=== PATIENT | female | born 1950 | race Caucasian/White ===

== ENCOUNTER 2023-10-07 11:12 | Emergency (ER) | payer MEDICARE, SELFPAY ==
[2023-10-07] VITALS (7 sets, daily range): BP systolic 124–140; BP diastolic 70–92; PULSE 74–105; RESP 14–20; TEMP 36.4–36.9; O2SAT 92–99
--- NOTE | ~2023-10-07 | CT_ITS ---
EXAMINATION: CT soft tissue neck chest w DATE: 10/07/2023 13:37 INDICATION: Cough. Sore throat. TECHNIQUE: Computed tomography (CT) of the neck and chest was performed with 75 mL Omnipaque-350 intr avenous contrast. Automated exposure control and iterative reconstruction technique were employed. Th e dose-length product was 531.95 mGy-cm. COMPARISON: None FINDINGS: CT NECK: There are likely changes of ocular lens replacement surgeries. There is mucosal thickening i nvolving the pharynx and larynx, likely changes of radiation therapy. There is chronic total occlusio n versus resection of right internal jugular vein. There is fat stranding in the neck, likely changes of radiation therapy. There is plaque in the proximal internal carotid arteries with 0% stenosis rel ative to normal distal artery lumen diameters. There are no pathologically enlarged lymph nodes. Ther e is moderate cervical spondylosis. CT CHEST: There is scarring at the lung apices, likely chronic radiation pneumonitis. There is chroni c radiation pneumonitis in anterolateral right lung. There is a 6.3 x 3.8 cm mass at left hilum with invasion of left pulmonary artery. A calcified left lung nodule and calcified left hilar and mediasti nal lymph nodes are consistent with old granulomatous disease. There is mild atelectasis in the lungs . There are mild groundglass opacities in left upper lobe and left lower lobe, likely focal pulmonary edema. No pleural effusion. Calcifications in the spleen are consistent with old granulomatous disea se. There is thoracic kyphosis and severe spondylosis. IMPRESSION: 1. 6.3 x 3.8 cm mass at left hilum, consistent with primary bronchogenic carcinoma versus metastatic disease. Reviewed, dictated and finalized at location A. ER TRAINER IMPRESSION: 1. 6.3 x 3.8 cm mass at left hilum, consistent with primary bronchogenic carcin mara versus metastatic disease.
--- NOTE | ~2023-10-07 | XR_ITS ---
EXAMINATION: XR chest 2V DATE: 10/07/2023 12:02 INDICATION: Cough. Sore throat. TECHNIQUE: Frontal and lateral views of the chest were obtained. COMPARISON: Chest 2 views 09/30/2004 FINDINGS: There is mild scarring at the lung apices. No pleural effusion or pneumothorax. The heart s ize is normal. Surgical clips overlie right axilla. IMPRESSION: 1. Mild scarring at the lung apices. Reviewed, dictated and finalized at location A. ER OPERATOR
--- NOTE | 2023-10-07 11:30 | ECG_ITS ---
Measurements Intervals [place] Rate: 102 P: 71 LA: 161 QRS: 57 QRSD: 78 T: 56 QT: 357 QTc: 465 Interpretive Statements SINUS TACHYCARDIA POSSIBLE LEFT ATRIAL ENLARGEMENT CANNOT RULE OUT SEPTAL INFARCT, AGE INDETERMINATE BASELINE ARTIFACT- I, II, III, AVR, AVL, AVF, V4 ABNORMAL ECG NO PREVIOUS ECG AVAILABLE FOR COMPARISON Electronically Signed On 10-07-2023 12:13:56 MEAT MOLDER by Paras Deras D.O.
[2023-10-07 12:01] LABS: Basophils Percent Auto 0.3 % (0.2-1.2); Eosinophils Absolute Auto 0.1 K/mm3 (0-0.3); Eosinophils Percent Auto 0.7 % (0-4.4); Hematocrit 37.7 % (37.0-47.0); Hemoglobin 11.9 g/dL (12.0-15.0); Immature Granulocyte Absolute 0.04 K/mm3 (0.00-0.031); Immature Granulocyte Percent A 0.3 % (0-0.5); Lymphocytes Absolute Auto 0.62 K/mm3 (0.9-3.2); Lymphocytes Percent Auto 5.4 % (18.3-44.2); Mean Corpuscular HGB Conc 31.6 g/dl (32-36); Mean Corpuscular Volume 91.7 fl (80-100); Mean Platelet Volume 9.7 fl (7.4-10.4); Monocytes Absolute Auto 0.9 K/mm3 (0.1-0.6); Monocytes Percent Auto 8.1 % (2.6-8.5); Neutrophils Absolute Auto 9.8 K/mm3 (1.3-6.7); Neutrophils Percent Auto 85.2 % (45.5-73.1); Platelet Count Result 277 k/mm3 (150-375); Red Blood Count 4.11 M/mm3 (4.2-5.4); Red Cell Distribution Width 12.9 % (11.5-14.5); White Blood Count 11.5 K/mm3 (4.5-10.0)
[2023-10-07 12:03] LABS: Alanine Aminotransferase 18 U/L (6-35); Albumin Level 4.5 g/dL (3.5-5.1); Alkaline Phosphatase 73 U/L (38-126); Anion Gap 6 mmol/L (8-16); Aspartate Amino Transferase 27 U/L (14-36); Bilirubin,Total 0.7 mg/dL (0.2-1.3); Blood Urea Nitrogen 15 mg/dL (7-17); Calcium 9.7 mg/dL (8.4-10.2); Carbon Dioxide 35 mmol/L (22-30); Chloride 90 mmol/L (98-107); Estimated Glomerular Filt Rate 49; Glucose 121 mg/dL (65-110); Potassium 3.3 mmol/L (3.4-5.0); Sodium 131 mmol/L (137-145)
[2023-10-07 12:37] LABS: Influenza A QL RT-PCR Negative (Negative); Influenza B QL RT-PCR Negative (Negative); RSV RNA, RT-PCR Negative (Negative); SARS-CoV-2 RNA PCR Negative (Negative)
--- NOTE | 2023-10-07 13:14 | ED.GENADULT ---
HPI - General Adult General Chief complaint: Upper Respiratory Infection Stated complaint: URI, LOW Sats Time Seen by Provider: 10/07/23 11:34 History of Present Illness HPI narrative: 73-year-old female presenting to the emergency department for evaluation of persistent sore throat and cough. Patient states she began developing sore throat symptoms on Tuesday, was started on antibiotics on Tuesday by her primary care physician but states she is still having persistent cough. Patient states she does have nasal drainage. Patient does report a prior history of tongue cancer and breast cancer. Related Data Allergies Allergy/AdvReac Type Severity Reaction Status Date / Time fentanyl Allergy Severe COMA Verified 02/14/17 08:14 Review of Systems Review of Systems: All systems reviewed & are unremarkable except as noted in HPI and below PMFSH Family History Family History (Updated 04/04/14 @ 07:13 by DOCTOR UNKNOWN) Mother Family history of malignant neoplasm Father Malignant neoplasm of prostate Social History Social History Smoking status: Never smoker Second hand tobacco smoke exposure: No Alcohol intake: current Exam Narrative: APPEARANCE: Well appearing, no pain, no distress, well-nourished. HEAD: normocephalic, atraumatic. EYES: PERRLA/EOMI, conjunctivae clear. NOSE: Normal no drainage THROAT: Pharynx clear, no exudate. NECK: Supple. No adenopathy, no masses. RESPIRATORY: Airway patent, respirations nonlabored. Clear to auscultation bilaterally, no rales, rhonchi, wheezing. CARDIOVASCULAR: Regular rate and rhythm without murmurs rubs or gallops. ABDOMINAL: Soft, nontender, nondistended, normal bowel sounds MUSCULOSKELETAL: Moves all extremities. Strength/ROM intact, No edema, No calf tenderness. NEURO: Alert. Cranial nerves II through XII intact. Grossly intact SKIN: Warm, dry. Normal Color Course Course Emergency Course: Case is discussed with the patient's primary care physician and they will help to expedite further outpatient evaluation of the suspected bronchogenic carcinoma Vital Signs Vital signs: Vital Signs Temperature 98.5 F 10/07/23 11:33 Pulse Rate 105 H 10/07/23 11:33 Respiratory Rate 16 10/07/23 11:33 Blood Pressure 140/92 H 10/07/23 11:33 Pulse Oximetry 94 10/07/23 11:33 Oxygen Delivery Room Air 10/07/23 11:33 Temperature 97.6 F 10/07/23 15:00 Pulse Rate 78 10/07/23 15:00 Respiratory Rate 18 10/07/23 15:00 Blood Pressure 130/80 10/07/23 15:00 Pulse Oximetry 97 10/07/23 15:00 Oxygen Delivery Room Air 10/07/23 11:37 Medical Decision Making MDM Narrative Medical decision making narrative: 73 old female presenting to the emergency department for evaluation of persistent sore throat and cough. CT soft tissue neck and CT chest were ordered. Patient is afebrile but does have a leukocytosis of 11.5, no significant abnormalities on the patient's CMP. Patient was negative for influenza RSV and for COVID. Chest CT was concerning for bronchogenic carcinoma versus metastatic disease. Patient does have a 30-year-old male history of breast cancer at 12-year-old male with history of throat cancer. Patient is well-appearing with stable pulse ox. Patient was comfortable the plan for discharge and close follow-up. I discussed the case with the PA on-call for the patient's primary care physician and they will help to expedite additional outpatient studies to further evaluate the suspected bronchogenic carcinoma. Differential Diagnosis Differential Diagnosis: Posterior pharyngeal abscess, peritonsillar abscess, pneumonia, pulmonary edema Vital Signs Vital Signs: Vital Signs Temperature 98.5 F 10/07/23 11:33 Pulse Rate 105 H 10/07/23 11:33 Respiratory Rate 16 10/07/23 11:33 Blood Pressure 140/92 H 10/07/23 11:33 Pulse Oximetry 94 10/07/23 11:33 Oxygen Delivery Room Air 10/07/23 11:33 Temperature 97.6 F 10/06
== END 2023-10-07 15:22 | disposition home or self-care (01) ==
PROVIDERS: Emergency Provider Emergency Medicine; PCP Family Medicine
DX: C34.90 Malignant neoplasm of unspecified part of unspecified bronchus or lung (principal); J06.9 Acute upper respiratory infection, unspecified; Z20.822 Contact with and (suspected) exposure to COVID-19
CPT/HCPCS: 36415; 70491; 71046; 71260; 80053; 85025; 87637; 93005; 99284; Q9967

== ENCOUNTER 2023-10-25 15:35 | Outpatient (CLI) | payer MEDICARE, SELFPAY ==
--- NOTE | 2023-10-25 | ECHO_ITS ---
Patient Info Name: Ghislaine Haji Age: 73 years : 1950 Gender: Female Ht: 60 in Wt: 87 lbs BSA: 1.28 m2 HR: 98 bpm BP: 130 / 80 mmHg Heart Rhythm: Sinus Rhythm Technical Quality: Good Exam Date: 10/25/2023 3:49 PM Exam Location: Echo Lab Patient Status: Outpatient Admit Date: 10/25/2023 Staff Ordering Physician: SCOTTY, MICHELLE Central Supply Assistant: Attending Provider: SCOTTYMICHELLE Exam Type: CA echo doppler color flow Study Info Indications - pre op Complete two-dimensional, color flow and Doppler transthoracic echocardiogram is performed. Summary 1. Complete two-dimensional, color flow and Doppler transthoracic echocardiogram is performed. 2. Left ventricular chamber dimension is normal. 3. Left ventricular systolic function is normal, estimated at >70%. 4. The left ventricular diastolic function is grade I diastolic dysfunction. 5. Right ventricular systolic function is normal. 6. No significant valvular disease. 7. There is small anterior pericardial effusion. Left Ventricle Left ventricular chamber dimension is normal. Left ventricular systolic function is normal, estimated at >70%. There is no increased left ventricular wall thickness. The left ventricular diastolic function is grade I diastolic dysfunction. Right Ventricle Right ventricular chamber dimension is normal. Right ventricular systolic function is normal. Left Atria Left atrial chamber dimension is normal. Right Atria Right atrial chamber dimension is normal. Atrial Septum Intact interatrial septum visualized by color flow imaging. Aortic Valve The aortic valve is trileaflet. There is no aortic valve stenosis. There is no aortic valve regurgitation. There is mild aortic valve calcification. Pulmonic Valve The pulmonic valve is not well visualized. Mitral Valve There is trace mitral valve regurgitation. The mitral valve annulus is severely calcified. Tricuspid Valve There is trace tricuspid valve regurgitation. Pericardium/Pleural There is small anterior pericardial effusion. Inferior Vena Cava Normal inferior vena cava with >50% collapse upon inspiration consistent with normal right atrial pressure, 3 mmHg. Aorta The aortic root size at the sinus of Valsalva is normal. Left Ventricular Outflow Tract Name Value Normal LVOT 2D LVOT Diameter 2.1 cm LVOT Doppler LVOT Peak Gradient 7 mmHg LVOT Mean Gradient 3 mmHg LVOT VTI 25 cm LVOT VTI/AV VTI Ratio 0.8 LVOT Stroke Volume 82 ml LVOT CO 7.9 l/min LVOT CI 6.2 l/min/m2 Pulmonic Valve Name Value Normal PV Doppler PV Peak Gradient 4 mmHg Mitral Valve Name Value
== END 2023-10-25 15:36 | disposition home or self-care (01) ==
LOC: ANHCARD 15:39
PROVIDERS: PCP Family Medicine
DX: I31.39 Other pericardial effusion (noninflammatory) (principal); R93.1 Abnormal findings on diagnostic imaging of heart and coronary circulation; R91.8 Other nonspecific abnormal finding of lung field
CPT/HCPCS: 93306

== ENCOUNTER 2023-12-25 10:18 | Emergency (ER) | payer MEDICARE, SELFPAY ==
[2023-12-25 10:20] VITALS: BP 124/67; PULSE 96; RESP 16; TEMP 36.7; O2SAT 100
--- NOTE | 2023-12-25 10:44 | ED.GENADULT ---
HPI - General Adult General Chief complaint: Unspecified Stated complaint: I have a feeding tube thats trying to come out Time Seen by Provider: 12/25/23 10:30 History of Present Illness HPI narrative: Patient is a 73-year-old female who presents ER with feeding tube issues. It was placed 1 month ago. She has been having some drainage around the area recently and would like to have it evaluated. She is concerned it is going to come out. No fevers or chills or sweats. No new issues with giving herself tube feeds. Related Data Allergies Allergy/AdvReac Type Severity Reaction Status Date / Time fentanyl Allergy Severe COMA Verified 12/25/23 10:23 Review of Systems Constitutional: Constitutional: Reports no additional constitutional complaints Cardiovascular: Cardiovascular: Reports no additional cardiovascular complaints Respiratory: Respiratory: Reports no additional respiratory complaints Gastrointestinal: Gastrointestinal: Reports no additional gastrointestinal complaints PMFSH Past Medical History Medical History (Updated 12/25/23 @ 10:48 by Brent Callahan MD) Gastrostomy tube in place Lung cancer Family History Family History (Updated 04/04/14 @ 07:13 by DOCTOR UNKNOWN) Mother Family history of malignant neoplasm Father Malignant neoplasm of prostate Social History Social History Smoking status: Never smoker Second hand tobacco smoke exposure: No Alcohol intake: current Exam Narrative: GENERAL: Well-appearing, well-nourished, and in no acute distress. HEAD: Normocephalic, atraumatic. EYES: PERRLA and EOMI. ENT: Nares clear, no rhinorrhea or epistaxis. Mucous membranes moist. NECK: Supple. CHEST: Clear to auscultation. No respiratory distress. HEART: Regular rate and rhythm. No murmur heard. Normal peripheral pulses. ABDOMEN: Soft, nontender, nondistended, normal active bowel sounds. EXTREMITIES: Normal range of motion. No edema. SKIN: Warm, dry, no rash. NEURO: No focal deficits. Alert and oriented x3. PSYCH: Normal mood and affect. Course Course Emergency Course: patient had 5 mL of fluid in the balloon like she is supposed to. I did better secure the disc to the abdominal lung. I have cleaned up gastric contents that were coming through the fistula. Educated patient on how to better secure the disc to the abdominal wall. Vital Signs Vital signs: Vital Signs Temperature 98.1 F 12/25/23 10:20 Pulse Rate 96 12/25/23 10:20 Respiratory Rate 16 12/25/23 10:20 Blood Pressure 124/67 12/25/23 10:20 Pulse Oximetry 100 12/25/23 10:20 Oxygen Delivery Room Air 12/25/23 10:20 Temperature 98.1 F 12/25/23 10:20 Pulse Rate 96 12/25/23 10:20 Respiratory Rate 16 12/25/23 10:20 Blood Pressure 124/67 12/25/23 10:20 Pulse Oximetry 100 12/25/23 10:20 Oxygen Delivery Room Air 12/25/23 10:20 Medical Decision Making Vital Signs Vital Signs: Vital Signs Temperature 98.1 F 12/25/23 10:20 Pulse Rate 96 12/25/23 10:20 Respiratory Rate 16 12/25/23 10:20 Blood Pressure 124/67 12/25/23 10:20 Pulse Oximetry 100 12/25/23 10:20 Oxygen Delivery Room Air 12/25/23 10:20 Temperature 98.1 F 12/25/23 10:20 Pulse Rate 96 12/25/23 10:20 Respiratory Rate 16 12/25/23 10:20 Blood Pressure 124/67 12/25/23 10:20 Pulse Oximetry 100 12/25/23 10:20 Oxygen Delivery Room Air 12/25/23 10:20 Discharge Plan Discharge Clinical Impression: Complication of feeding tube Patient Disposition: Home, Self-Care Condition: Stable Instructions: How to Use and Care for Your PEG Tube (DC) Additional Instructions: Return the ER if you cannot perform tube feeds, you have severe abdominal pain, or you have additional concerns. Follow-up/Referrals: Howard,Moses Delgado MD [Primary Care Provider] - 1 Week
== END 2023-12-25 11:08 | disposition home or self-care (01) ==
PROVIDERS: Emergency Provider Emergency Medicine
DX: T85.528A Displacement of other gastrointestinal prosthetic devices, implants and grafts, initial encounter (principal); Y73.1 Therapeutic (nonsurgical) and rehabilitative gastroenterology and urology devices associated with adverse incidents
CPT/HCPCS: 99281

== ENCOUNTER 2025-05-02 11:21 | Emergency (ER) | payer MEDICARE, SELFPAY ==
--- OUTSIDE RECORDS SUMMARY | 2000-08-08 06:11 | XMS_ITS | Continuity of Care Document ---
Author Organization [facility] Address [address] [place] [address] Phone Care Team Providers Care Juvenile Officer Name Role Phone Interface, HMaint Import Unavailable Unavail able Medications Medication Instructions Dosage Effective Dates (start - stop) Status Comments No Drug Therapy Prescribed Advance Directives Directive Yes / No Effective Date File Name No Information Encounters Encounter Description Practice Location Reason(s) For Visit Diagnoses Date Provider Providers Copied on Encounter [facility], [address] [place] [address], [id number], [place] tel:[phone] [facility] No Information Interface HMaint Import. . Family History Family Member Type Diagnosis Age At Onset No Information Payers Payer name Insurance type Covered green party ID Authoriza tion(s) No Information Social History Type Description Quantity Date Captured Comments Sex Female Smoking Status No Information Chief Complaint And Reason For Visit No Information History Of Present Illness Encounter Date Complaint History Of Prese nt Illness No Information Medications Administered Medication Instructions Dosage Effective Dates (start - stop) Status Comments No Drug Therapy Prescribed Instructions Date Instruction Additional Infor mation No Information Assessments Type Assessment Date No Information
[2025-05-02] VITALS (7 sets, daily range): BP systolic 130–141; BP diastolic 69–93; PULSE 90–116; RESP 14–20; TEMP 36.8; O2SAT 97–100
--- NOTE | ~2025-05-02 | CT_ITS ---
EXAMINATION: CT soft tissue neck w con COMPARISON: None HISTORY: Hemoptysis, hx of tongue cancer TECHNIQUE: Axial images were obtained with IV contrast. Sagittal, coronal reconstruction images were obtained from the axial views. Omnipaque 370, [address] scan performed using dose optimization techniques including the following automated exposure control; adjustment of mA and/or kV; use of iterative reconstruction technique. Automatic exposure control was used to reduce radiation dose. Permanent radiation dose record is archived to PACS. FINDINGS: The visualized brain parenchyma and optic globes are unremarkable There is no thickening of the prevertebral space. There is asymmetry of the base of the tongue with irregularity of the base of the tongue and nodularity which extends into the right aryepiglottic fold with thickening of the aryepiglottic folds or dislocation. There is abnormal edema noted involving the vocal cords bilaterally with severe narrowing of the airspace at this level with hyperemia also noted of the vocal cords with irregularity of the parietal recess. No thyroid nodules. No anterior superior mediastinal lymphadenopathy. No thickening of the visualized esophagus There is stranding within the parapharyngeal spaces. No asymmetry of the tonsillar tissue however the tonsillar tissue appears edematous especially on the right side with infiltration of the right parapharyngeal space. The left parotid gland is not clearly identified and appears atrophic. The right parotid gland appears unremarkable. The left submandibular gland appears atrophic. The right submandibular gland is not clearly identified There is abnormal density in the right jugulodigastric space with no lymphadenopathy. Small lymph nodes noted in the left jugulodigastric space and the posterior cervical triangles bilaterally. There is no supraclavicular lymphadenopathy identified. The lung apices demonstrate chronic changes with apical scarring bilaterally. There is a left-sided Mediport. No sclerotic or lytic lesions. There is however significant dental disease noted involving the visualized mandible with dental abscesses noted, distinction from treatment related changes limited. No significant sinusitis. The soft tissues appear unremarkable IMPRESSION: Irregularity of the airway detailed above with abnormal enhancement. There is narrowing of the airway with infiltration of the right parapharyngeal space. These findings may reflect sequelae of previous treatment, superimposed infection difficult to exclude however underlying neoplasm should be considered. PET CT is recommended to further assess. Direct visualization is suggested with a tissue sampling . Reviewed, dictated and finalized at location P. IMPRESSION: Irregularity of the airway detailed above with abnormal enhancement . There is narrowing of the airway with infiltration of the right parapharyngea l space. These findings may reflect sequelae of previous treatment, superimpose d infection difficult to exclude however underlying neoplasm should be consider ed. PET CT is recommended to further assess. Direct visualization is suggested with a tissue sampling .
--- NOTE | ~2025-05-02 | XR_ITS ---
Examination: XR chest 1V portable Clinical History: Hemoptysis Comparison: X-rays 10/07/2023 Technique: Portable AP Findings: Left chest Mediport. Heart size normal. Emphysema. Left midlung focal interstitial markings or airspace disease. No acute bony abnormality. IMPRESSION: 1. Focal interstitial markings or airspace disease left midlung. Reviewed, dictated and finalized at location R.
--- NOTE | ~2025-05-02 | CT_ITS ---
CTA CHEST CLINICAL HISTORY: Hemoptysis, hx of lung/tongue ca . COMPARISON: Chest x-ray today TECHNIQUE: Helical CTA performed from thoracic inlet to upper abdomen IV contrast information not listed in PACS Coronal, sagittal reformats. Multiplanar MIPS CT images acquired with automatic exposure control for dose reduction DLP: 138 mGy-cm FINDINGS: Pulmonary arteries: No PE. Thoracic Aorta: No dissection or aneurysm. Heart/pericardium: Heart size mildly enlarged. Small pericardial fluid. RV/LV ratio: Normal. Lungs/Pleura: Hyperinflation. Biapical scarring.Scarring right upper and middle lobes peripherally. Tracheobronchial tree: Patent. Nodes: No enlarged nodes. Left perihilar soft tissue with surrounding scarring extending into lung. Left hilar calcification Bones: No acute bony abnormality. Soft tissues: Unremarkable. Visualized upper abdomen: Small hiatal hernia. IMPRESSION: 1. No PE. 2. Left hilar changes likely posttreatment effect but viable malignancy cannot be excluded. Recommend continued surveillance. 3. Lung changes treatment fibrosis. 4. Small pericardial fluid. Reviewed, dictated and finalized at location R.
--- NOTE | 2025-05-02 12:18 | ECG_ITS ---
Test Date: 2025-05-02 12:30:17 Measurements Intervals [place] Rate: 87 P: 71 LA: 177 QRS: 64 QRSD: 81 T: 58 QT: 363 QTc: 438 Interpretive Statements SINUS RHYTHM WITH OCCASIONAL SUPRAVENTRICULAR PREMATURE COMPLEXES No previous ECG available for comparison Electronically Signed On 05-02-2025 15:25:05 CDT by Sedrick Balderrama M.D.
--- NOTE | 2025-05-02 12:33 | ED.GENADULT ---
HPI - General Adult General Chief complaint: Unspecified Stated complaint: COUGHING UP BLOOD- LUNG CANCER Time Seen by Provider: 05/02/25 11:58 History of Present Illness HPI narrative: This is a 75-year-old female with history of tongue and lung cancer, both in remission presenting for new hemoptysis. Patient noticed that she has been coughing up blood started this morning. There is no other associated symptoms such as chest pain shortness of breath or difficulty breathing. Patient has noticed that she is starting to lose some of her teeth the radiation but she does not believe that the bleeding is coming from her mouth. No swelling of her legs. No fevers. The patient does have a chronic cough she attributes to her lung cancer and treatment. Related Data Home Medications ?Medication ?Instructions ?Recorded ?Confirmed ?Last Taken ?Type alprazolam 0.5 mg tablet 0.5 mg PO DAILY 12/18/24 Unknown History amlodipine 5 mg tablet 5 mg PO DAILY 12/18/24 Unknown History citalopram 20 mg tablet 20 mg PO DAILY 12/18/24 Unknown History levothyroxine 50 mcg capsule 50 mcg PO DAILY 12/18/24 Unknown History Allergies Allergy/AdvReac Type Severity Reaction Status Date / Time fentanyl Allergy Severe COMA Verified 05/02/25 11:21 [facility] Past Medical History Medical History (Updated 05/02/25 @ 15:22 by Bahman Hernandez MD) Gastrostomy tube in place Lung cancer 2023- chemo, radiation, immune therapy Surgical History Surgical History (Updated 12/18/24 @ 15:02 by MARCELLA Hall-C) H/O section Hx of tonsillectomy History of lumpectomy of right breast H/O breast augmentation Family History Family History Mother Family history of malignant neoplasm Father Malignant neoplasm of prostate Social History Social History Smoking status: Never smoker Second hand tobacco smoke exposure: No Alcohol intake: current Exam Narrative: APPEARANCE: No apparent distress. Head: atraumatic. EYES: EOMI, NOSE: Atraumatic NECK: Trachea midline RESPIRATORY: No increased rate of breathing, CTAB, speaking in full sentences CARDIOVASCULAR: RRR, no peripheral edema ABDOMINAL: Non-distended soft nontender MUSCULOSKELETAl: No obvious deformities NEURO: Alert. Moving 4/4 extremities SKIN:: Warm, dry. Normal color PSYCHIATRIC: Normal affect Course Vital Signs Vital signs: Vital Signs Temperature 98.2 F 05/02/25 11:29 Pulse Rate 95 05/02/25 11:29 Respiratory Rate 16 05/02/25 11:29 Blood Pressure 136/69 05/02/25 11:29 Pulse Oximetry 97 05/02/25 11:29 Oxygen Delivery Room Air 05/02/25 11:29 Temperature 98.2 F 05/02/25 11:29 Pulse Rate 97 05/02/25 12:31 Respiratory Rate 14 05/02/25 12:00 Blood Pressure 141/93 H 05/02/25 12:00 Pulse Oximetry 100 05/02/25 12:00 Oxygen Delivery Room Air 05/02/25 11:55 Medical Decision Making MDM Narrative Medical decision making narrative: -Course: 75-year-old female with history of lung and throat cancer presenting for hemoptysis. On exam she is resting comfortably and vital signs are stable. CT PE and CT soft tissue neck ordered to evaluate for neoplasm and PE. CT of the chest was negative for PE. It showed residual scarring from the previous lung cancer site there unclear if there is any new malignancy. Similarly with the CT of her throat there is scarring from previous neoplasm and they are unclear if there is new neoplasm or not. They recommended further evaluation by Oncology. I reach out to the patient's oncologist team at [facility]. I spoke with Dr. Verdugo and reviewed the case. She will reach out to her primary oncologist team and they will arrange appropriate follow-up for further testing. Results were discussed with the patient she is comfortable going home. She is given return precautions for severe bleeding, chest pain or shortness of breath. Patient is agreeable with plan. -DDX includes but is not limited to: PE, chronic cough with hemoptysis, recurrence Of neoplasm either in the chest or the throat Independent interpretation of studies: White count 8.7. Hemoglobin 11.4 which is consistent with her previous hemoglobin 11.9. Metabolic panel showed chronic CO2 retainer pattern. Otherwise laboratory studies normal. Viral swabs negative. Vital Signs Vital Signs: Vital Signs Temperature 98.2 F 05/02/25 11:29 Pulse Rate 95 05/02/25 11:29 Respiratory Rate 16 05/02/25 11:29 Blood Pressure 136/69 05/02/25 11:29 Pulse Oximetry 97 05/02/25 11:29 Oxygen Delivery Room Air 05/02/25 11:29 Temperature 98.2 F 05/02/25 11:29 Pulse Rate 97 05/02/25 12:31 Respiratory Rate 14 05/02/25 12:00 Blood Pressure 141/93 H 05/02/25 12:00 Pulse Oximetry 100 05/02/25 12:00 Oxygen Delivery Room Air 05/02/25 11:55 Discharge Plan Discharge Clinical Impression: Cough with hemoptysis Patient Disposition: Home Condition: Stable Instructions: Antibiotic Form, Coughing Up Blood (Hemoptysis) (ED) Additional Instructions: You were seen in the ER for hemoptysis. CTs were obtained of her chest and neck and a showed old scarring from previous cancer but is unclear if there is a new cancer. Please follow-up with your oncologist with for close follow-up in 3-5 days. If you develop worsening hemoptysis, chest pain, or shortness of breath, please return to the ED immediately for re-evaluation. Patient Language: Danish Prescriptions: No Action amlodipine 5 mg tablet 5 mg PO DAILY citalopram 20 mg tablet 20 mg PO DAILY levothyroxine 50 mcg capsule 50 mcg PO DAILY alprazolam 0.5 mg tablet 0.5 mg PO DAILY Follow-up/Referrals: Rosibel Osullivan, [employer]TER-C [Primary Care Provider, Family Practice]
[2025-05-02 12:37] LABS: Hematocrit 36.8 % (37.0-47.0); Hemoglobin 11.4 g/dL (12.0-15.0); Immature Granulocyte Percent A 0.3 % (0-0.5); Lymphocytes Absolute Auto 0.62 K/mm3 (0.9-3.2); Mean Corpuscular HGB Conc 31.0 g/dl (32-36); Mean Corpuscular Hemoglobin 28.0 pg (26-34); Mean Corpuscular Volume 90.4 fl (80-100); Nucleated Red Blood Cells Absolute Auto 0.000 K/mm3 (0.0-0.012); Nucleated Red Blood Cells Perc 0.0 % (0.0-0.2); Platelet Count Result 247 k/mm3 (150-375); Red Blood Count 4.07 M/mm3 (4.2-5.4); White Blood Count 8.7 K/mm3 (4.5-10.0)
[2025-05-02 12:56] LABS: Alanine Aminotransferase 18 U/L (6-35); Albumin Level 4.4 g/dL (3.5-5.1); Alkaline Phosphatase 97 U/L (38-126); Anion Gap 6 mmol/L (4-12); Aspartate Amino Transferase 40 U/L (14-36); Bilirubin,Total 0.5 mg/dL (0.2-1.3); Blood Urea Nitrogen 27 mg/dL (7-17); Calcium 9.5 mg/dL (8.4-10.2); Carbon Dioxide 34 mmol/L (22-30); Chloride 97 mmol/L (98-107); Estimated CRCL calculation 33 ml/min; Estimated Glomerular Filt Rate > 60; Glucose 104 mg/dL (65-110); Potassium 3.9 mmol/L (3.4-5.0); Sodium 137 mmol/L (137-145); Total Protein 8.4 g/dL (6.3-8.2)
[2025-05-02 13:17] LABS: Influenza A QL RT-PCR Negative (Negative); Influenza B QL RT-PCR Negative (Negative); RSV RNA, RT-PCR Negative (Negative); SARS-CoV-2 RNA PCR Negative (Negative)
--- OUTSIDE RECORDS SUMMARY | 2025-05-02 14:30 | XMS_ITS ---
Author Organization [facility] Address [address] [place] [address] Care Team Providers Care Cleaner Wall Name Role Phone Shanta Calderon MD Unavailable [phone] Taylor Francois MD Unavailable [phone] Catie Alfaro MD PhD Unavailable [phone], Physician Primary Care Provider [phone] Kaleb Lomeli MD Unavailable Active Problems Patient Care Coordination No te Formatting of this note migh t be different from the original. This is a 73-year-old female presenting to us at the request of Krystal Lin for an evaluation of a lung mass. She has a medical history significant for anxiety, depression, Sjogren's syndrome, Raynaud's phenomenon, mitral valve prolapse and breast cancer status post lumpectomy. She is a never smoker. She has a history significant for right tongue base cancer and is status post definitive chemoradiation therapy. She underwent a chest CT at [facility] [place] on 10/07/2023. Interval finding of a left hilar mass measuring 3.7 x 3.6 cm; the mass appears to invade and almost occlude the left lower lobe pulmonary artery, in case the left main pulmonary artery and abut the left superior pulmonary vein. There is also evidence of intravascular invasion of the mass along the left upper segmental pulmonary arteries. A 7 mm left upper lobe nodule with surrounding ground-glass and cavitary left lower lobe nodule surrounding ground-glass are also noted. There is no pleural effusion or pneumothorax.Thyroid is normal. There is no supraclavicular axillary adenopathy. Prominent 7 mm short axis right paratracheal lymph node. Heart size is normal in size. There is no pericardial effusion. Thoracic aorta and main pulmonary artery are normal in caliber. Esophagus is nondilated. Images of the upper abdomen demonstrate calcified splenic lesion suggestive of prior granulomatous infection. No suspicious osseous lesions. Suggestion of healed right medial clavicle fracture. We will arrange for her to have pulmonary function testing and a PET scan. She is here for further surgical evaluation and discussion. Problem Noted Date Diagnosed Date Squamous cell lung cancer, left 12/02/2023 Severe malnutrition 11/28/2023 Assessment & Plan (12/01/2023 10:35 AM CDT): - Patient presenting with weight loss over past 2months in setting of malignancy - s/p G-tube placement today by IR. - s/p G tube, started on diet 11/29, plan to increase to gola as tolerated. - Appreciate RD recs for feeds post-tube placement Anxiety 11/28/2023 Assessment & Plan (11/28/2023 2:26 PM CDT): - Cont citalopram and alprazolam - Patient declined [facility] Lung mass 10/18/2023 Assessment & Plan (11/28/2023 2:29 PM CDT): - Patient with recent L Lung mass noted with associated mediastinal LAD s/p biopsy with SCC. PET without distant spread and Brain MRI negative for mets - Recently established with Dr. 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/2018 Sjogren's syndrome 08/22/2017 Raynaud's phenomenon 08/22/2017 Mitral valve prolapse 08/22/2017 Eczema 08/22/2017 Costal chondritis 08/22/2017 Tongue carcinoma 08/21/2017 Breast implant rupture 10/22/2015 Breast lump 08/21/2014 Personal history of malignant neoplasm of breast 01/28/2014 Overview (06/06/2020): 1998; stage unknown; breast conservation Tongue carcinoma 12/05/2013 Overview (06/06/2020): MALIG TONIO TONGUE NOS Depression 12/05/2013 Overview (11/11/2016): DEPRESSIVE DISORDER NEC Generalized anxiety disorder 12/05/2013 Overview (11/11/2016): GENERALIZED ANXIETY DIS Malignant neoplasm of breast 12/05/2013 Overview (11/12/2016): MALIGN NEOPL BREAST NOS Assessment & Plan (11/28/2023 2:25 PM CDT): - s/p chemoradiation and lumpectomy in 2017 HTN (hypertension) 12/05/2013 Overview (06/06/2020): BENIGN HYPERTENSION Assessment & Plan (11/28/2023 2:25 PM CDT): - Cont amlodipine 10mg daily History of tongue cancer 11/28/2012 Overview (06/06/2020): History of tongue cancer Assessment & Plan (11/28/2023 2:25 PM CDT): - Prior history of SCC tongue s/p chemoradiation in 2010 complicated by dysarthria and mild dysphagia - CMT History of skin disorder 11/28/2012 Overview (11/11/2016): History of condyloma acuminatum Personal history of primary malignant neoplasm o f breast 11/28/2012 Overview (11/11/2016): History of breast cancer in female Current Treatment and Therapy Plans Alteplase (CATHFLO ACTIVASE) - orders for occluded catheters & IV Maintenance Therapy Plan* Plan Start Date:12/06/2023 Plan Provider:Erik Quezada MD Linked Problems Squamous cell lung cancer, l eft (HCC) Treatment Medications No medications scheduled. Past Treatment and Therapy Plans Oncology Chemotherapy Treatment Plan Name Start Date Discontinue Date Treatment Medications Discontinue Reason Plan Provider Cycles PACLItaxel / CARBOplatin with Concurrent Radiation: Induction / Weekly - Non-Small Cell Lung 4 02/28/2024 CARBOplatin (PARAPLATIN)CARB Oplatin (PARAPLATIN) IVPB in 100 mLCARBOplatin (PARAPLATIN) IVPB in 250 mLPACLitaxel (TAXOL)PACLItaxe l (TAXOL) 100 ml Partial Response Catie Alfaro MD PhD 1 of 1 cycle started Oncology Treatment (2) Plan Name Start Date Discontinue Date Treatment Medications Discontinue Reason Plan Provider Cycles durvalumab consolidation 14 Day Cycles - Lung (Cycle 17+ changed to 1500 mg 28 day Cycles) 4 03/05/2025 durvalumab (IMFINZI)durva lumab (IMFINZI) IVPB in 100 mL solution Therapy Complete Catie Alfaro MD PhD 25 of 25 cycles started Radiation Treatments (No Episode) * Course C1 L Lung 202312/15/2023 - 01/26/2024 Treatment Period Energy Fraction Dose Fractions Total Dose Plans Planned L LUNG 12/15/2023 - 01/26/2024 200 30 / 6,000 Reference Points Delivered PTV_6000 12/15/2023 - 01/26/2024 6,000 Lifetime Dose Tracking * Chemical Lifetime Dose Automatic Entry Manual Entr y Fluoro Time 7.2 minutes 7.2 minutes 0 minutes Air kerma at the reference point (Ka,r) 11 mGy 1 1 mGy 0 mGy DLP 2,485.4 mGycm 2,485.4 mGycm 0 mGycm
--- OUTSIDE RECORDS SUMMARY | 2025-05-02 14:31 | XMS_ITS | Encounter Summary ---
Author Organization [facility] Address [address] [place] [address] Phone Care Team Providers Care Assistant Oceanographer Name Role Phone Shanta Calderon MD Unavailable [phone] Taylor Francois MD Unavailable [phone] Catie Alfaro MD PhD Unavailable [phone], Physician Primary Care Provider Kaleb Lomeli MD Unavailable Encounter Details Date Type Department Care Team (Late st Contact Info) Description 05/02/2025 Telephone [facility] Medicine Oncology [address] [place] [address] Amanda Scott, RN Social History Tobacco Use Types Packs/Day Years Used Date Smoking Tobacco: Never Cigarettes Smokeless Tobacco: Never Alcohol Use Standard Drinks/Week Comments Yes 7 (1 standard drink = 0.6 oz pur e alcohol) 1-2 glasses of wine nightly AUDIT-C Answer Date Recorded Frequency of Alcohol Consumption Not on file 11/29/2023 Q2: How many drinks containi ng alcohol do you have on a typical day when you are drinking? Patient does not drink Frequency of Binge Drinking Not on file 11/07 Personal Safety Answer Date Recorded Have you ever been in or are you currently in a harmful physical or emotional relationship or is someone making you feel afraid or unsafe? 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 Volume was enough to soak a tissue. Coughing has subsided today, no additional blood produced. No other signs of infection, afebrile, O2 levels remain WNL, denies SOB, denies CP other than discomfort from coughing. As hemoptysis volume possibly nearing ~1 TBSP, pt directed to ED. Urged [facility] facility, but pt cares for her [place] asked if she could wait and go tomorrow. I explained that we recommend she go as soon as she can as hemoptysis can turn into an urgent situation quickly. Pt verbalized understanding. documented in this encounter Plan of Treatment Not on file documented as of this encounter Visit Diagnoses Not on filedocumented in this encounter Care Teams Assistant Oceanographer Relationship Specialty Start Date End Date No, Physician PCP - General 11/22/23 Shanta Calderon MD [address] [address] Consulting Physician Obstetrics and Gynecology 04/05/22 Taylor Francois MD [address] [address] Fellow Thoracic Surgery 11/07/23 Catie Alfaro MD PhD [address] [facility] [address] [place] [address] Medical Oncologist/[employer] Principal Medical Oncology 11/16/23 Kaleb Lomeli MD [address] [facility] [address] [place] [address] Radiation Oncologist Radiation Oncology 01/30/24 documented as of this encounter
--- OUTSIDE RECORDS SUMMARY | 2025-05-02 14:31 | XMS_ITS | Clinical Summary ---
Author Organization [facility] Address [address] [place] [address] Care Team Providers Care Balance Screwhead Polisher Name Role Phone Shanta Calderon MD Unavailable [phone] Taylor Francois MD Unavailable [phone] Catie Alfaro MD PhD Unavailable [phone], Physician Primary Care Provider [phone] Kaleb Lomeli MD Unavailable Allergies Active Allergy Reactions Criticality Noted Date Comments Fentanyl Other (See comments) High 01/28/2014 Reaction: coma Paclitaxel Flushing (skin) Low 12/20/2023 Noted flushing in face, upper chest. Patient reports feeling hot, no other symptoms noted/reported. Medications citalopram (CeleXA) 20 mg tabletIndicatio ns:Anxiety with Depression Take 1 and 1/2 tablets everyday at bedtime 135 tablet 2 7 Active amLODIPine (NORVASC) 5 mg tabletIndicatio ns:hypertension Take 1 tablet (5 mg total) by mouth nightly 2 Active lidocaine (ASPERCREME) 4 % adhesive patch,medicated Place 1 patch on the skin daily 15 patch 4 Active al & mag hydroxide with simethicone-dip henhydramine-li docaine (MAGIC MOUTHWASH) suspension [id number] s:Squamous cell carcinoma lung, left (HCC) Swish and swallow 15 mL every 4 (four) hours as needed (Mouth sores) 480 mL 1 4 Active prochlorperazin e (Compazine) 10 mg tabletIndicatio ns:Squamous cell lung cancer, left (HCC) Take 1 tablet (10 mg total) by mouth every 6 (six) hours as needed for nausea or vomiting 120 tablet 3 4 Active ALPRAZolam (XANAX) 0.5 mg tabletIndicatio ns:Generalized Anxiety Disorder Take 1 tablet (0.5 mg total) by mouth daily 30 tablet 4 Active HYDROcodone-kim taminophen (NORCO) 5-325 mg per tabletIndicatio ns:Pain Take 1 tablet by mouth every 6 (six) hours as needed for pain for up to 10 doses 10 tablet 4 Active guaiFENesin (ROBITUSSIN) syrup 100 mg/5 mL Take 5 mL (100 mg total) by mouth 3 (three) times a day as needed for cough 120 mL 4 Active levothyroxine (SYNTHROID) 50 mcg tabletIndicatio ns:Squamous cell lung cancer, left (HCC),High thyroid stimulating hormone (TSH) level Take 1 tablet (50 mcg total) by mouth financial reporting consultant before breakfast 30 tablet 11 5 Active lidocaine-prilo kurtis creamIndication s:Administratio n of Local Anesthesia Apply dime thickness to port area 60 minutes prior to access and cove with clean occlusive dressing such as Saran/plastic food wrap. RN to access port will remove dressing. 30 g 3 5 Active guaiFENesin-cod eine (GUAITUSS AC) liquid 100-10 mg/5 mL Take 5 mL by mouth 3 (three) times a day as needed for cough 120 mL 5 Active albuterol HFA (PROVENTIL HFA,VENTOLIN HFA,PROAIR HFA) 90 mcg/actuation inhalerIndicati ons:Squamous cell lung cancer, left (HCC) Inhale 2 puffs every 6 (six) hours as needed for wheezing 18 g 3 5 Active gabapentin (NEURONTIN) solution 250 mg/5 mLIndications:S quamous cell lung cancer, left (HCC) Take 2 mL (100 mg total) by mouth 2 (two) times a day as needed (Can take twice a day if needed) 200 mL 5 Active albuterol 2.5 mg /3 mL (0.083 %) nebulizer solution Take 3 mL (2.5 mg total) by nebulization every 6 (six) hours as needed for wheezing 75 mL 11 5 03/26/20 26 Active Active Problems Patient Care Coordination No te [...] She underwent a chest [facility] at [facility] on 10/07/2023. 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 [...] CDT): - s/p chemoradiation and lumpectomy in 2018 HTN (hypertension) 12/05/2013 Overview (06/06/2020): BENIGN HYPERTENSION [...] (11/11/2016): History of breast cancer in female Encounters Date Type Department Care Team Description 05/02/2025 Telephone [facility] Medicine Oncology [address] [facility] [facility] Floor 5 [place] [phone] Amanda Scott, NOAH 05/02/2025 Telephone [facility] Medicine Oncology [address] [place] [phone] Amanda Scott, NOAH 05/01/2025 Telephone [facility]ing 1 [place] [phone] 04/10/2025 Documentation [facility] [address] [place] [phone] Mary Choi, MAGUI 04/02/2025 Documentation [facility] [address] [place] [address] Yunior Redmond, MAGUI 03/26/2025 10:00 AM CDT Office Visit [facility] Medicine Pulmonary [address] 5 [place] [address] Erik Harden MD Chronic cough (Primary Dx); Squamous cell lung cancer, left (HCC); Lung mass; Dysphagia, unspecified type 03/26/2025 8:43 AM CDT - 03/26/2025 11:59 PM CDT Hospital Encounter [facility] Medicine PFT Lab [address] Floor 1, [address] [place] [address] Squamous cell lung cancer, left (HCC) Discharge Disposition: Discharge to home or self care 03/26/2025 Telephone [facility] Medicine Pulmonary [address] [place] [address] 8th [place] [address] [place] [address] Pamela Day RN 03/19/2025 Telephone [facility] [address] [place] [address] Yunior Redmond, MAGUI 03/05/2025 11:40 AM CDT Office Visit [facility] Medicine Oncology [address] [facility] Floor 5 [place] [address] Catie Alfaro MD PhD Squamous cell lung cancer, left (HCC) 03/05/2025 10:30 AM CDT Clinical Support [facility] - Lab Collection [address] [facility] Floor 5 [place] [address] Squamous cell lung cancer, left (HCC); High thyroid stimulating hormone (TSH) level 03/05/2025 Documentation [facility] [address] [place] [address] Mary Choi, MAGUI 02/28/2025 8:13 AM CDT - 02/28/2025 11:59 PM CDT Hospital Encounter [facility] - [place] [address] [facility] Floor 8 [place] [address] Squamous cell lung cancer, left (HCC) Discharge Disposition: Discharge to home or self care 02/19/2025 11:00 AM CDT - 02/19/2025 3:50 PM CDT Hospital Encounter [facility] [address] [place] [address] Squamous cell lung cancer, left (HCC) (Primary Dx) Discharge Disposition: Discharge to home or self care 02/19/2025 Results Follow-Up [facility] Medicine Oncology [address] [facility] [address] 5 [place] [phone] Michell Ramirez, NOAH CBC with auto differential, Comprehensive metabolic panel, TSH, Additional followed-up results: 2 02/19/2025 Orders Only [facility] Medicine Oncology [address] [facility] [address] 5 [place] [address] Catie Alfaro MD PhD 02/05/2025 12:00 PM CDT Infusion [facility] - Infusion [address] [facility] Floor 5 [place] [address] Squamous cell lung cancer, left (HCC) (Primary Dx) 02/05/2025 11:00 AM CDT Office Visit [facility] Medicine Oncology [address] [facility] Floor 5 [place] [address] Catie Alfaro MD PhD Squamous cell lung cancer, left (HCC) (Primary Dx) 02/05/2025 10:00 AM CDT Clinical Support [facility] - Lab Collection [address] [facility] Floor 5 [place] [address] Squamous cell lung cancer, left (HCC) 02/05/2025 Documentation [facility] 1 [place] [address] from Last 3 Months Immunizations Immunization Administration Dates Next Due BCG 04/09/2009, 9,03/19/2009,03/12 Influenza, Quadrivalent, Hig h Dose, Preservative Free, Intrr 05/08/2020,07/15/2016 Influenza, Trivalent, High D ose, Split, Preservative Free, Intramuscular 06/10/2022,07/15/2016,06/04/2015,05/08,04/17/2014 Influenza, Trivalent, IM (MDV) 07/24/2013,2012,07/11/2012 Influenza, Unspecified 07/16/2023,05/08/2020,03/2016 Pfizer SARS-CoV-2 Monovalent Vaccination (12+ Yrs) PURPLE 10/01/2020,09/10/2020 Pneumococcal Conjugate PCV 13 04/21/2015 Pneumococcal Polysaccharide PPV23 08/13/2016 TD Preservative Free 12/03/2005 ZOSTER Recombinant 06/11/2019 Surgical History Surgery Date Site/Laterality Comments VAGINAL DELIVERY 08/08/1970 - 08/07/1971 : VAGINAL DELIVERY 08/08/1980 - 08/07/1981 : BREAST IMPLANT REMOVAL R breast implant rupture: surgery for removal of implant SECTION 08/08/1976 - 08/07/1977 AUGMENTATION MAMMOPLASTY 08/08/1983 - 08/07/1984 BREAST LUMPECTOMY 08/08/1997 - 08/07/1998 PAROTIDECTOMY 08/08/1993 - 08/07/1994 s/p resection benign parotid gland tumor TONSILLECTOMY 08/08/1953 - 08/07/1954 BREAST RECONSTRUCTION 08/08/1997 - 08/07/1998 BREAST IMPLANT REMOVAL Left COLONOSCOPY PORT PLACEMENT CHEST >5 YEARS 11/21/2023 N/A IR G TUBE PLACEMENT PERCUTANEOUS 11/29/2023 N/A ENTERIC TUBE INJECTION 03/09/2024 N/A Medical History Medical History Date Comments Coma 2010 hx coma from fen tanyl patch Breast implant rupture R breast implant rupture Anxiety Hard to intubate 10/31/23 Aborted procedure due to difficult intubation. 2015 Easy to mask ventilate, unable to properly seat an LMA-per Dr. Smith, difficult 04/23/21, see full report Tongue cancer 2010 MVP (mitral valve prolapse) Raynaud's syndrome Breast cancer (HCC) 1998 right Infected venous access port Menopause ovarian failure History of radiation therapy History of chemotherapy HTN (hypertension) Family History Medical History Relation Name Comments Hypertension Father Delgadocem Florence Hypertension; Cancer Mother Ela Naman Leukemia Mother Elahallie Rosadoer Leukemia; /Leuk emia; Breast cancer Other Self Hypertension Sister Corrie Thomas Hypertensi on; Anesthesia problems Neg Hx Colon cancer Neg Hx Deep vein thrombosis Neg Hx Ovarian cancer Neg Hx Uterine cancer Neg Hx Relation Name Status Comments Father Delgado Florence Mother Ela Florence Other Self Alive Sister Corrie Thomas Other Social History Tobacco Use Types Packs/Day Years Used Date Smoking Tobacco: Never Cigarettes Smokeless Tobacco: Never Tobacco Cessation:Counseling Given: Not Answered Alcohol Use Standard Drinks/Week Comments Yes 7 [...] on file 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 Gender Identity Not on file Sexual Orientation Not on file Obstetrics History Para Term AB IAB SAB Ectopic Multiple Livin g Live Births 6 3 3 3 3 3 Date Outcome GA Total Labor Labor/2nd/3rd Weight Sex Type Anes PTL Margareth A1 A5 Name Clin Para F Vag-S pont Living Para M CS-Cl assic al Living Para F Vag-S pont Living SAB SAB SAB Last Filed Vital Signs Vital Sign Reading Time Taken Comments Blood Pressure 118/73 03/26/2025 9:46 AM CDT Pulse 85 03/26/2025 9:46 AM CDT Temperature 36.7 C (98 F) 03/26/2025 9:46 AM CDT Respiratory Rate 18 03/26/2025 9:46 AM CDT Oxygen Saturation 98% 03/26/2025 9:46 AM CDT Inhaled Oxygen Concentration - - Weight 44.3 kg (97 lb 9.6 oz) 03/26/2025 9:46 AM CDT Height 149.9 cm (4' 11) 03/26/2025 9:46 AM CDT Body Mass Index 19.71 03/26/2025 9:46 AM CDT Plan of Treatment Health Maintenance Due Date Last Done Comments Depression Screening 1950 Hepatitis C Screening 1950 Osteoporosis Screening-Bone Density Scan 1950 Hepatitis B Screening 1967 DTaP/Tdap/Td Vaccine (1 - Tdap) 12/04/2005 6 Zoster Vaccine (2 of 2) 08/06/2019 06/11/2019 Covid-19 Vaccine (3 - Pfizer risk series) 10/29/2020 10/01/2020, 09/10/2020 Well Visit 65+ 04/05/2023 04/05/2022, 09/2019, 09/29/2017 Fall Risk Assessment 12/01/2024 12/02/2023, 11/24/19 24 Influenza Vaccine (#1) 2025 , 06/10/2022, 05/08/2020, Additional history exists Pneumococcal vaccine 65+ Completed 08/13/2016, 04/08 Breast Cancer Screening-Mammogram Discontinued 04/06/2022, 04/05/2022, 04/05/2022 Medical Devices Implanted Type Area Construction Administrator Device Identifier Shelf Expiration Date Model / Serial / Lot [employer] Excela Low Porfile Power Port 8fr 1.6mm 1 Lumen [id number] - [id number] Implanted:Qty: 1 on 11/21/2023 by Jorge A Reid MD at [facility] [employer] 06/11/2028 [id number] / / [id number] Procedures Procedure Name Priority Date/Time Associated Diagnosis Comments PULMONARY FUNCTION TEST (PFT) Routine 03/26/2025 9:33 AM CDT Squamous cell lung cancer, left (HCC) EGFR Routine 03/05/2025 10:35 AM CDT Squamous cell lung cancer, left (HCC) DIFFERENTIAL AUTO Routine 03/05/2025 10: 35 AM CDT Squamous cell lung cancer, left (HCC) CBC WITH AUTO DIFFERENTIAL Routine 03/05/2025 10:35 AM CDT Squamous cell lung cancer, left (HCC) COMPREHENSIVE METABOLIC PANEL Routine 03/05/2025 10:35 AM CDT Squamous cell lung cancer, left (HCC) TSH Routine 03/05/2025 10:35 AM CDT High thyroid stimulating hormone (TSH) level CT CHEST ABDOMEN PELVIS W CONTRAST Schedule Routine, Read Routine (OP Routine) 02/28/2025 9:05 AM CDT Squamous cell lung cancer, left (HCC) EGFR STAT 02/19/2025 11:29 AM CDT Squamous cell lung cancer, left (HCC) DIFFERENTIAL AUTO Routine 02/19/2025 11: 29 AM CDT Squamous cell lung cancer, left (HCC) TSH Routine 02/19/2025 11:29 AM CDT Squamous cell lung cancer, left (HCC) COMPREHENSIVE METABOLIC PANEL STAT 02/19/2025 11:29 AM CDT Squamous cell lung cancer, left (HCC) CBC WITH AUTO DIFFERENTIAL Routine 02/19/2025 11:29 AM CDT Squamous cell lung cancer, left (HCC) EGFR STAT 02/05/2025 9:50 AM CDT Squamous cell lung cancer, left (HCC) DIFFERENTIAL AUTO Routine 02/05/2025 9:5 0 AM CDT Squamous cell lung cancer, left (HCC) CBC WITH AUTO DIFFERENTIAL Routine 02/05/2025 9:50 AM CDT Squamous cell lung cancer, left (HCC) COMPREHENSIVE METABOLIC PANEL STAT 02/05/2025 9:50 AM CDT Squamous cell lung cancer, left (HCC) TSH Routine 02/05/2025 9:50 AM CDT Squamous cell lung cancer, left (HCC) SCREENING MAMMOGRAM BILATERAL W MELECIO Schedule Routine, Read Routine (OP Routine) 04/05/2022 3:48 PM CDT Screening mammogram, encounter for from Last 3 Months or Most Recently Relevant to Health Maintenance Results * Pulmonary Function Test - (03/26/2025 9:33 AM CDT) FVC PRE 2.00 L [facility] FVC %PRE PRED 90 % [facility] FVC POST 2.16 L [facility] FVC %POST PRED 97 % [facility] FEV1 PRE 1.42 L [facility] FEV1 %PRE PRED 82 % [facility] FEV1 POST 1.54 L [facility] FEV1 %POST PRED 89 % [facility] FEV1/FVC PRE 71.1 % [facility] FEV1/FVC POST 71.5 % [facility] FRC [address] PRE 2.[address] [facility] [address]C [address] %PRE PRED 115 % [facility] RV PRE 1.97 L [facility] RV %PRE PRED 93 % [facility] TLC PRE 4.00 L [facility] TLC %PRE PRED 89 % [facility] DLCO PRE 12.9 ml/min/mmH g [facility] DLCO %PRE PRED 76 % [facility] Anatomical Region Laterality Modality PFT 03/26/2025 8:47 AM CDT Narrative 03/29/2025 1:38 AM CDT Table formatting from the original result was not included. [facility] Division of Pulmonary & Critical Care Medicine [address] [place] [address]; [place] [address] [facility]; [place] [address]; [phone] Pulmonary Function Laboratory Pulmonary Stress Test Simple/Oxygen Assessment Patient: Ghislaine Haji Date: 03/26/2025 : 1950 Ht: 60 IN Wt: 98 LBS Time (min) Distance (ft)/ [place] O2 L/M SpO2 HR Isai* BP FEV1 % Pred Rest: RA 99 90 0 112/60 1.42 82 % Walk/Bike: 1 RA 91 100 0 2 RA 92 101 0 3 RA 93 103 0 4 RA 94 103 0 5 RA 93 102 0 6 min 0 sec RA 91 103 0 Recovery: 1 RA 93 91 0 128/70 1.44 83% 3 *Isai rate of perceived exertion (1-10 dyspnea scale) Ezequiel, CHEST 2003; 123:1408 Walk Test Summary: Six Minute Walk Distance: 830 ft Six-minute Walk Work [distance (m) x body wt (kg)]: 86975 kg.m (normal >60,000kg.m) Oxygen required to maintain SpO2 greater than 90% during six minutes of walkin L/M Comments: Interpretation: Breathing room air, SpO2 is normal at rest and during exercise sufficient to increase pulse, SpO2 falls but remains normoxemic . On this basis, SpO2 is adequate at rest breathing room air and while walking breathing room air. This level of exercise is associated with no significant change of FEV1. By signing this report, the attending pulmonary physician certifies that he/she has personally reviewed and interpreted the graphic and numerical data associated with this pulmonary function study and has reviewed and /or edited a preliminary draft report and agrees with the written final report. PFT performed at:->[facility] PUL PFT [id number] Procedure:->Oxygen Assessment Titration Procedure:->Lung Volumes Procedure:->Spirometry Procedure:->Spirometry with Bronchodilator Procedure:->DLCO DLCO:->Spirometry Standard:->Plethysmography w/airway resistance, nitrogen washout Pulmonary Function Test Interpretation SPIROMETRY: Spirometry is normal. There is no significant improvement after inhaling a single dose of albuterol. LUNG VOLUMES: TLC measured by plethysmography is normal. DLCO: The diffusing capacity is normal. PULSE OXIMETRY: See Oxygen Assessment/Cardiopulmonary Exercise Study-Simple Impression: There is no significant ventilatory defect. There is no impairment of alveolar gas exchange by DLCO. Compared with most recent study, there has been no significant interval change. The attending pulmonary physician certifies a physician presence in the [facility] Suite during the administration of aerosolized bronchodilator. The attending pulmonary physician certifies that he/she has reviewed and interpreted the graphic and numerical data of this pulmonary function study and agrees with the written final report. The lower limit of normal for PaO2 and %HbO2 is age dependent. However, the [facility] Pulmonary Function Laboratory defines hypoxemia as a PaO2 <56 mm Hg or a %HbO2 <89%. Starting on August of 2024 the [facility] Pulmonary Function Laboratory utilizes race neutral GLI Global normative equations. us Erik Harden MD PFT ORDERABLES Final Result * eGFR (03/05/2025 10:35 AM CDT) eGFR 71 >=60 mL/min/1. 73 m2 Comment: Interpretive Data Reference Interval Normal >/= 90 mL/min/1.73m2 Mildly decreased* 60 - 89 mL/min/1.73m2 Mildly to moderately decreased 45 - 59 mL/min/1.73m2 Moderately to severely decreased 30 - 44 mL/min/1.73m2 Severely decreased 15 - 29 mL/min/1.73m2 Kidney Failure < 15 mL/min/1.73m2 *Relative to young adult level Estimated glomerular filtration rate is determined by the 2020 CKD-EPI equation recommended by the National Kidney Foundation (A Unifying Approach to GFR Estimation: Recommendations of the NKF-ASK Task Force on Reassessing the Inclusion of Race in Diagnosing Kidney Disease, JASN 2020). The CKD-EPI equation should not be used for patients with unstable renal function and has not been validated in children and those over 70. Current interpretive data was last reviewed 2021. Blood 03/05/2025 10:3 5 AM CDT 03/05/2025 10:39 AM CDT us Catie Alfaro MD PhD LAB BLOOD ORDERABLES Final Result [facility] Department [place] [address] * (ABNORMAL) Differential, auto (03/05/2025 10:35 AM CDT) Pathologist [facility] Neutrophil abs 5.93 1.50 - 6.50 K/cumm Comment:Testing performed by : [facility] Heme Lab, [address] [place] [phone] Lymphocyte abs 0.44(L) 0.80 - 3.30 K/cumm [facility] Comment:Testing performed by : [facility] Heme Lab, [address] [place] [phone] Monocyte abs 0.76 0.20 - 0.80 K/cumm [facility] Comment:Testing performed by : [facility] Heme Lab, [address] [place] [phone] Eosinophil abs 0.19 0.00 - 0.50 K/cumm [facility] Comment:Testing performed by : [facility]e [facility], [address] [place] [phone] Basophil abs 0.02 0.00 - 0.10 K/cumm [facility] Comment:Testing performed by : [facility]e [facility], [address] [place] [phone] Neutrophil pct 81.0 % [facility] Comment: Interpretive Data Percent cell count reference ranges are not reported, since discordance with absolute values may lead to misinterpretation of CBC data. Current Interpretive Data was last revised on 2017. Testing performed by: [facility], [address] [place] [phone] Lymphocyte pct 5.9 % [facility] Comment: Interpretive Data Percent cell count reference ranges are not reported, since discordance with absolute values may lead to misinterpretation of CBC data. Current Interpretive Data was last revised on 2017. Testing performed by: [facility], [address] [place] [phone] Monocyte pct 10.3 % [facility] Comment: Interpretive Data Percent cell count reference ranges are not reported, since discordance with absolute values may lead to misinterpretation of CBC data. Current Interpretive Data was last revised on 2017. Testing performed by: [facility] Heme Lab, [address] [place] [phone] Eosinophil pct 2.5 % [facility] Comment: Interpretive Data Percent cell count reference ranges are not reported, since discordance with absolute values may lead to misinterpretation of CBC data. Current Interpretive Data was last revised on 2017. Testing performed by: [facility]e Lab, [address] [place] [phone] Basophil pct 0.3 % [facility] Comment: Interpretive Data Percent cell count reference ranges are not reported, since discordance with absolute values may lead to misinterpretation of CBC data. Current Interpretive Data was last revised on 2017. Testing performed by: [facility] Heme Lab, [address] [place] [phone] Blood 03/05/2025 10:3 5 AM CDT 03/05/2025 10:38 AM CDT us Catie Alfaro MD PhD LAB BLOOD ORDERABLES Final Result [facility] Department [place] [address] * (ABNORMAL) CBC with auto differential (03/05/2025 10:35 AM CDT) WBC 7.33 3.80 - 9.90 K/cumm Comment:Testing performed by : [facility] Heme Lab, [address] [place] [address] Hgb 10.7(L) 11.9 - 15.5 g/dL [facility] Comment:Testing performed by : [facility]e Lab, [address] [place] [address] Hct 31.9(L) 35.6 - 45.5 % [facility] Comment:Testing performed by : [facility]e Lab, [address] [place] [address] Plt 234 150 - 400 K/cumm [facility] Comment:Testing performed by : [facility]e Lab, [address] [place] [address] MPV 7.9 6.8 - 10.4 fL [facility] Comment:Testing performed by : [facility]e Lab, [address] [place] [address] RBC 3.80(L) 3.90 - 5.20 M/cumm [facility] Comment:Testing performed by : [facility]e Lab, [address] [place] [address] MCV 84.0 81.3 - 96.4 fL [facility] Comment:Testing performed by : [facility]e Lab, [address] [place] [phone] MCH 28.2 27.1 - 33.3 pg [facility] Comment:Testing performed by : [facility] Heme Lab, [address] [place], [place] [phone] MCHC 33.6 32.3 - 35.7 g/dL [facility] Comment:Testing performed by : [facility]e Lab, [address] [place], [place] [phone] RDW CV 14.7 11.1 - 14.9 % [facility] Comment:Testing performed by : [facility] Heme Lab, [address] [place], [place] [phone] NRBC abs 0.00 0.00 - 0.01 K/cumm [facility] Comment:Testing performed by : [facility]e Lab, [address] [place], [place] [phone] Blood 03/05/2025 10:3 5 AM CDT 03/05/2025 10:38 AM CDT us Catie Alfaro MD PhD LAB BLOOD ORDERABLES Final Result [facility] Department [place] [employer] [place] [address] * (ABNORMAL) TSH (03/05/2025 10:35 AM CDT) Pathologist [facility] Emergency Department Thyroid Stimulating Hormone 10.30(H) 0.30 - 4.20 mcIUnit/mL Blood 03/05/2025 10:3 5 AM CDT 03/05/2025 10:39 AM CDT Catie Alfaro MD PhD LAB BLOOD ORDERABLES Final Result [facility] [place] [address] * (ABNORMAL) Comprehensive metabolic panel (03/05/2025 10:35 AM CDT) Sodium 137 135 - 145 mmol/L Potassium, pl 4.1 3.3 - 4.9 mmol/L [facility] Chloride 98 97 - 110 mmol/L [facility] CO2 31 22 - 32 mmol/L [facility] Anion gap 8 2 - 15 mmol/L [facility] BUN 28(H) 6 - 25 mg/dL [facility] Creatinine 0.85 0.60 - 1.10 mg/dL [facility] Glucose 120 70 - 199 mg/dL [facility] Comment: Interpretive Data Fasting glucose >/= 126 mg/dl is diagnostic for diabetes. Fasting is defined as no caloric intake for at least 8 hours. Fasting glucose between 100 mg/dl to 125 mg/dl is diagnostic of prediabetes. In a patient with classic symptoms of hyperglycemia or hyperglycemic crisis, a random glucose >/= 200 mg/dl is diagnostic for diabetes. In the absence of unequivocal hyperglycemia, results should be confirmed by repeat testing. The classification and Diagnosis of Diabetes Diabetes Care 2021; 46: S19-S40. Current interpretive data was last revised 2022. Calcium 9.4 8.5 - 10.3 mg/dL [facility] Bilirubin, total 0.4 0.1 - 1.2 mg/dL [facility] Protein, pl 7.3 6.5 - 8.5 g/dL [facility] Albumin 3.9 3.5 - 5.0 g/dL [facility] Alk phos 84 40 - 130 Units/L [facility] ALT 15 7 - 45 Units/L [facility] AST 20 10 - 45 Units/L [facility] Blood 03/05/2025 10:3 5 AM CDT 03/05/2025 10:39 AM CDT us Catie Alfaro MD PhD LAB BLOOD ORDERABLES Final Result [facility] [place] [address] * CT Chest Abdomen Pelvis W Contrast (02/28/2025 9:05 AM CDT) Anatomical Region Laterality Modality Body N/A Computed Tomogra phy 02/28/2025 9:19 AM CDT Impressions 02/28/2025 10:15 AM CDT 1. Stable posttreatment changes in the left hilum. No evidence of progressive disease in the chest. 2. No evidence of metastatic disease or in the chest, abdomen, or pelvis. Dictated by: Vern Blevins M.D. The radiology attending physician has personally reviewed this study, and had reviewed and/or edited this written report and agrees with it. Electronically signed by: Johnnie Longo M.D. Narrative 02/28/2025 10:15 AM CDT EXAMINATION: Computed tomography of the chest, abdomen and pelvis with intravenous contrast HISTORY: Left lung squamous cell carcinoma post concurrent chemoradiation, metastatic disease evaluation TECHNIQUE: Transaxial computed tomographic images of the chest, abdomen and pelvis were obtained with intravenous contrast according to the standard protocol after the uneventful administration of 70 mL Opti-Ray 350 intravenous contrast. COMPARISON: CT 12/20/2024 FINDINGS: Chest: Stable left perihilar soft tissue thickening with surrounding architectural distortion and traction bronchiectasis. Anterior right upper lobe peripheral reticulation in keeping with postradiation changes. Heart size is normal. Small pericardial effusion there is unchanged. Unchanged soft tissue thickening of the right breast and chest wall in keeping with treated right breast malignancy. No thoracic lymphadenopathy. Thoracic aorta and main pulmonary artery are normal caliber. Abdomen/Pelvis: Splenic calcifications in keeping with granulomatous disease. Liver, pancreas, adrenal glands, gallbladder appear normal. Kidneys enhance symmetrically without hydronephrosis. Bilateral renal cysts. Additional subcentimeter bilateral renal lesions are too small to characterize, likely also cysts. Urinary bladder appears normal. Uterus is present. No suspicious adnexal lesions. There are prominent, dilated bilateral gonadal veins, worse on the left. The colon and small bowel are normal in course and caliber. Colonic diverticulosis without evidence of diverticulitis. No evidence of bowel obstruction. No free intraperitoneal gas or fluid. Appendix is not definitely seen. Abdominal aorta is normal in course and caliber with mild calcific atherosclerotic disease. No pathologically enlarged abdominal or pelvic lymph nodes. No suspicious osseous lesions. Multilevel degenerative changes of the spine. Sclerotic lesion of the L4 vertebral body likely represents a bone island. Modic degenerative changes of the T8-T9 endplates. 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 COMPARISON: CT 12/20/2024 FINDINGS: Chest: Stable left perihilar soft tissue thickening with surrounding architectural distortion and traction bronchiectasis. Anterior right upper lobe peripheral reticulation in keeping with postradiation changes. Heart size is normal. Small pericardial effusion there is unchanged. Unchanged soft tissue thickening of the right breast and chest wall in keeping with treated right breast malignancy. No thoracic lymphadenopathy. Thoracic aorta and main pulmonary artery are normal caliber. Abdomen/Pelvis: Splenic calcifications in keeping with granulomatous disease. Liver, pancreas, adrenal glands, gallbladder appear normal. Kidneys enhance symmetrically without hydronephrosis. Bilateral renal cysts. Additional subcentimeter bilateral renal lesions are too small to characterize, likely also cysts. Urinary bladder appears normal. Uterus is present. No suspicious adnexal lesions. There are prominent, dilated bilateral gonadal veins, worse on the left. The colon and small bowel are normal in course and caliber. Colonic diverticulosis without evidence of diverticulitis. No evidence of bowel obstruction. No free intraperitoneal gas or fluid. Appendix is not definitely seen. Abdominal aorta is normal in course and caliber with mild calcific atherosclerotic disease. No pathologically enlarged abdominal or pelvic lymph nodes. No suspicious osseous lesions. Multilevel degenerative changes of the spine. Sclerotic lesion of the L4 vertebral body likely represents a bone island. Modic degenerative changes of the T8-T9 endplates. IMPRESSION: 1. Stable posttreatment changes in the left hilum. No evidence of progressive disease in the chest. 2. No evidence of metastatic disease or in the chest, abdomen, or pelvis. Dictated by: Vern Blevins M.D. The radiology attending physician has personally reviewed this study, and had reviewed and/or edited this written report and agrees with it. Electronically signed by: Johnnie Longo M.D. us Catie Alfaro MD PhD IMG CT PROCEDURES Final Re sult * eGFR (02/19/2025 11:29 AM CDT) Pathologist [facility] eGFR 79 >=60 mL/min/1. 73 m2 Comment: Interpretive Data Reference Interval Normal >/= 90 mL/min/1.73m2 Mildly decreased* 60 - 89 mL/min/1.73m2 Mildly to moderately decreased 45 - 59 mL/min/1.73m2 Moderately to severely decreased 30 - 44 mL/min/1.73m2 Severely decreased 15 - 29 mL/min/1.73m2 Kidney Failure < 15 mL/min/1.73m2 *Relative to young adult level Estimated glomerular filtration rate is determined by the 2020 CKD-EPI equation recommended by the National Kidney Foundation (A Unifying Approach to GFR Estimation: Recommendations of the NKF-ASK Task Force on Reassessing the Inclusion of Race in Diagnosing Kidney Disease, JASN 2020). The CKD-EPI equation should not be used for patients with unstable renal function and has not been validated in children and those over 70. Current interpretive data was last reviewed 2021. Blood 02/19/2025 11:2 9 AM CDT 02/19/2025 11:42 AM CDT us Catie Alfaro MD PhD LAB BLOOD ORDERABLES Final Result [facility] Department [place] [address] * (ABNORMAL) Differential, auto (02/19/2025 11:29 AM CDT) Pathologist [facility] Neutrophil abs 5.55 1.50 - 6.50 K/cumm Imm gran abs 0.01 0.00 - 0.10 K/cumm [facility] Lymphocyte abs 0.51(L) 0.80 - 3.30 K/cumm [facility] Monocyte abs 0.75 0.20 - 0.80 K/cumm [facility] Eosinophil abs 0.35 0.00 - 0.50 K/cumm [facility] Basophil abs 0.02 0.00 - 0.10 K/cumm [facility] Neutrophil pct 77.2 % [facility] Comment: Interpretive Data Percent cell count reference ranges are not reported, since discordance with absolute values may lead to misinterpretation of CBC data. Current Interpretive Data was last revised on 2017. Imm gran pct 0.1 % [facility] Comment: Interpretive Data Percent cell count reference ranges are not reported, since discordance with absolute values may lead to misinterpretation of CBC data. Current Interpretive Data was last revised on 2017. Lymphocyte pct 7.1 % [facility] Comment: Interpretive Data Percent cell count reference ranges are not reported, since discordance with absolute values may lead to misinterpretation of CBC data. Current Interpretive Data was last revised on 2017. Monocyte pct 10.4 % [facility] Comment: Interpretive Data Percent cell count reference ranges are not reported, since discordance with absolute values may lead to misinterpretation of CBC data. Current Interpretive Data was last revised on 2017. Eosinophil pct 4.9 % [facility] Comment: Interpretive Data Percent cell count reference ranges are not reported, since discordance with absolute values may lead to misinterpretation of CBC data. Current Interpretive Data was last revised on 2017. Basophil pct 0.3 % [facility] Comment: Interpretive Data Percent cell count reference ranges are not reported, since discordance with absolute values may lead to misinterpretation of CBC data. Current Interpretive Data was last revised on 2017. Blood 02/19/2025 11:2 9 AM CDT 02/19/2025 11:40 AM CDT us Catie Alfaro MD PhD LAB BLOOD ORDERABLES Final Result [facility] Department [place] [address] * (ABNORMAL) CBC with auto differential (02/19/2025 11:29 AM CDT) WBC 7.19 3.80 - 9.90 K/cumm Hgb 10.9(L) 11.9 - 15.5 g/dL [facility] Hct 34.4(L) 35.6 - 45.5 % [facility] Plt 288 150 - 400 K/cumm [facility] MPV 10.0 9.1 - 12.3 fL [facility] RBC 3.96 3.90 - 5.20 M/cumm [facility] MCV 86.9 81.3 - 96.4 fL [facility] MCH 27.5 27.1 - 33.3 pg [facility] MCHC 31.7(L) 32.3 - 35.7 g/dL [facility] RDW CV 14.1 11.1 - 14.9 % [facility] RDW SD 44.9 35.7 - 48.1 fL [facility] NRBC abs 0.00 0.00 - 0.01 K/cumm [facility] Blood 02/19/2025 11:2 9 AM CDT 02/19/2025 11:40 AM CDT Catie Alfaro MD PhD LAB BLOOD ORDERABLES Final Result Performing Organization Address City/[facility]/ZIP Co de Phone Number [facility] Department [place] [address] * (ABNORMAL) TSH (02/19/2025 11:29 AM CDT) [facility] Thyroid Stimulating Hormone 10.70(H) 0.30 - 4.20 mcIUnit/mL Blood 02/19/2025 11:2 9 AM CDT 02/19/2025 11:40 AM CDT Catie Alfaro MD PhD LAB BLOOD ORDERABLES Final Result [facility] [place] [place] [address] * Comprehensive metabolic panel (02/19/2025 11:29 AM CDT) [facility] Sodium 138 135 - 145 mmol/L Potassium, pl 4.3 3.3 - 4.9 mmol/L [facility] Chloride 101 97 - 110 mmol/L [facility] CO2 29 22 - 32 mmol/L [facility] Anion gap 8 2 - 15 mmol/L [facility] BUN 18 6 - 25 mg/dL [facility] Creatinine 0.78 0.60 - 1.10 mg/dL [facility] Glucose 94 70 - 199 mg/dL [facility] Comment: Interpretive Data Fasting glucose >/= 126 mg/dl is diagnostic for diabetes. Fasting is defined as no caloric intake for at least 8 hours. Fasting glucose between 100 mg/dl to 125 mg/dl is diagnostic of prediabetes. In a patient with classic symptoms of hyperglycemia or hyperglycemic crisis, a random glucose >/= 200 mg/dl is diagnostic for diabetes. In the absence of unequivocal hyperglycemia, results should be confirmed by repeat testing. The classification and Diagnosis of Diabetes Diabetes Care 2021; 46: S19-S40. Current interpretive data was last revised 2022. Calcium 9.4 8.5 - 10.3 mg/dL [facility] Bilirubin, total 0.3 0.1 - 1.2 mg/dL [facility] Protein, pl 7.1 6.5 - 8.5 g/dL [facility] Albumin 3.7 3.5 - 5.0 g/dL [facility] Alk phos 79 40 - 130 Units/L [facility] ALT 13 7 - 45 Units/L [facility] AST 20 10 - 45 Units/L [facility] Blood 02/19/2025 11:2 9 AM CDT 02/19/2025 11:40 AM CDT us Catie Alfaro MD PhD LAB BLOOD ORDERABLES Final Result [facility] [place] [address] * eGFR (02/05/2025 9:50 AM CDT) eGFR 76 >=60 mL/min/1. 73 m2 Comment: Interpretive Data Reference Interval Normal >/= 90 mL/min/1.73m2 Mildly decreased* 60 - 89 mL/min/1.73m2 Mildly to moderately decreased 45 - 59 mL/min/1.73m2 Moderately to severely decreased 30 - 44 mL/min/1.73m2 Severely decreased 15 - 29 mL/min/1.73m2 Kidney Failure < 15 mL/min/1.73m2 *Relative to young adult level Estimated glomerular filtration rate is determined by the 2020 CKD-EPI equation recommended by the National Kidney Foundation (A Unifying Approach to GFR Estimation: Recommendations of the NKF-ASK Task Force on Reassessing the Inclusion of Race in Diagnosing Kidney Disease, JASN 2020). The CKD-EPI equation should not be used for patients with unstable renal function and has not been validated in children and those over 70. Current interpretive data was last reviewed 2021. Blood 02/05/2025 9:50 AM CDT 02/05/2025 10:02 AM CDT Catie Alfaro MD PhD LAB BLOOD ORDERABLES Final Result [facility] [place] [address] * (ABNORMAL) Differential, auto (02/05/2025 9:50 AM CDT) Neutrophil abs 7.15(H) 1.50 - 6.50 K/cumm Comment:Testing performed by : [facility], [address] [place], [place] [phone] Lymphocyte abs 0.47(L) 0.80 - 3.30 K/cumm [facility] Comment:Testing performed by : [facility], [address] [place] [address] Monocyte abs 0.80 0.20 - 0.80 K/cumm [facility] Comment:Testing performed by : [facility], [address] [place] [address] Eosinophil abs 0.23 0.00 - 0.50 K/cumm [facility] Comment:Testing performed by : [facility], [address] [place] [address] Basophil abs 0.02 0.00 - 0.10 K/cumm [facility] Comment:Testing performed by : [facility], [address] [place] [phone] Neutrophil pct 82.5 % [facility] Comment: Interpretive Data Percent cell count reference ranges are not reported, since discordance with absolute values may lead to misinterpretation of CBC data. Current Interpretive Data was last revised on 2017. Testing performed by: [facility], [address] [place] [phone] Lymphocyte pct 5.4 % [facility] Comment: Interpretive Data Percent cell count reference ranges are not reported, since discordance with absolute values may lead to misinterpretation of CBC data. Current Interpretive Data was last revised on 2017. Testing performed by: [facility], [address] [place] [phone] Monocyte pct 9.2 % [facility] Comment: Interpretive Data Percent cell count reference ranges are not reported, since discordance with absolute values may lead to misinterpretation of CBC data. Current Interpretive Data was last revised on 2017. Testing performed by: [facility], [address] [place] [phone] Eosinophil pct 2.7 % [facility] Comment: Interpretive Data Percent cell count reference ranges are not reported, since discordance with absolute values may lead to misinterpretation of CBC data. Current Interpretive Data was last revised on 2017. Testing performed by: [facility], [address] [place] [phone] Basophil pct 0.2 % [facility] Comment: Interpretive Data Percent cell count reference ranges are not reported, since discordance with absolute values may lead to misinterpretation of CBC data. Current Interpretive Data was last revised on 2017. Testing performed by: [facility], [address] [place] [phone] Blood 02/05/2025 9:50 AM CDT 02/05/2025 9:51 AM CDT Catie Alfaro MD PhD LAB BLOOD ORDERABLES Final Result [facility] [place] [address] * (ABNORMAL) CBC with auto differential (02/05/2025 9:50 AM CDT) WBC 8.67 3.80 - 9.90 K/cumm Comment:Testing performed by : [facility], [address] [place] [address] Hgb 10.9(L) 11.9 - 15.5 g/dL [facility] Comment:Testing performed by : [facility], [address] [place] [address] Hct 33.3(L) 35.6 - 45.5 % [facility] Comment:Testing performed by : [facility], [address] [place] [address] Plt 254 150 - 400 K/cumm [facility] Comment:Testing performed by : [facility], [address] [place] [address] MPV 7.9 6.8 - 10.4 fL [facility] Comment:Testing performed by : [facility], [address] [place] [address] RBC 3.90 3.90 - 5.20 M/cumm [facility] Comment:Testing performed by : [facility], [address] [place] [address] MCV 85.3 81.3 - 96.4 fL [facility] Comment:Testing performed by : [facility], [address] [place] [address] MCH 27.8 27.1 - 33.3 pg [facility] Comment:Testing performed by : [facility], [address] [place] [address] MCHC 32.7 32.3 - 35.7 g/dL [facility] Comment:Testing performed by : [facility], [address] [place] [address] RDW CV 14.4 11.1 - 14.9 % [facility] Comment:Testing performed by : [facility], [address] [place] [phone] NRBC abs 0.00 0.00 - 0.01 K/cumm [facility] Comment:Testing performed by : [facility], [address] [place] [phone] Blood 02/05/2025 9:50 AM CDT 02/05/2025 9:51 AM CDT Catie Alfaro MD PhD LAB BLOOD ORDERABLES Final Result Performing Organization Address City/[facility]/ZIP Co de Phone Number [facility] Department [place] [address] * (ABNORMAL) TSH (02/05/2025 9:50 AM CDT) Pathologist [facility] Thyroid Stimulating Hormone 4.33(H) 0.30 - 4.20 mcIUnit/mL Blood 02/05/2025 9:50 AM CDT 02/05/2025 10:02 AM CDT Catie Alfaro MD PhD LAB BLOOD ORDERABLES Final Result Performing Organization Address City/[facility]/ZIP Co de Phone Number [facility] Department [place] [address] * Comprehensive metabolic panel (02/05/2025 9:50 AM CDT) Pathologist [facility] Sodium 137 135 - 145 mmol/L Potassium, pl 4.5 3.3 - 4.9 mmol/L [facility] Chloride 99 97 - 110 mmol/L [facility] CO2 32 22 - 32 mmol/L [facility] Anion gap 6 2 - 15 mmol/L [facility] BUN 23 6 - 25 mg/dL [facility] Creatinine 0.80 0.60 - 1.10 mg/dL [facility] Glucose 102 70 - 199 mg/dL [facility] Comment: Interpretive Data Fasting glucose >/= 126 mg/dl is diagnostic for diabetes. Fasting is defined as no caloric intake for at least 8 hours. Fasting glucose between 100 mg/dl to 125 mg/dl is diagnostic of prediabetes. In a patient with classic symptoms of hyperglycemia or hyperglycemic crisis, a random glucose >/= 200 mg/dl is diagnostic for diabetes. In the absence of unequivocal hyperglycemia, results should be confirmed by repeat testing. The classification and Diagnosis of Diabetes Diabetes Care 2021; 46: S19-S40. Current interpretive data was last revised 2022. Calcium 9.5 8.5 - 10.3 mg/dL [facility] Bilirubin, total 0.3 0.1 - 1.2 mg/dL [facility] Protein, pl 7.4 6.5 - 8.5 g/dL [facility] Albumin 3.9 3.5 - 5.0 g/dL [facility] Alk phos 84 40 - 130 Units/L [facility] ALT 12 7 - 45 Units/L [facility] AST 15 10 - 45 Units/L [facility] Blood 02/05/2025 9:50 AM CDT 02/05/2025 10:02 AM CDT us Catie Alfaro MD PhD LAB BLOOD ORDERABLES Final Result [facility] [place] [address] * (ABNORMAL) Screening Mammogram Bilateral W Melecio (04/05/2022 3:48 PM CDT) Anatomical Region Laterality Modality Breast Bilateral Mammography Addenda Addendum by Tia Weinstein MD on 04/06/2022 1:17 PM CDT Right breast was difficult to position due to post operative changes. Recommended complete right breast ultrasound since spiculations are seen on the MLO view. ACR BI-RADS CATEGORY 0 - INCOMPLETE: NEED ADDITIONAL IMAGING EVALUATION Narrative 04/06/2022 1:13 PM CDT Examination: Screening Mammogram Bilateral W Melecio: 04/05/22 Clinical: Screening mammogram, encounter for. Prior Study Comparisons: Comparison was made to the prior available relevant studies at the time of interpretation. Findings: Bilateral No significant masses, malignant type calcifications, skin thickening, nipple retraction, or significant lymphadenopathy is noted in either breast. The CAD review showed no significant findings. The breasts have scattered areas of fibroglandular density. The patient will be notified of results by letter. Impression: BI-RADS ATLAS category (overall): 2 - Benign There is no mammographic evidence of malignancy. Routine Screening Mammogram in 1 Yr is recommended for bilateral Overall Assessment: 2 - Benign us Self Screening Mammogram IMG MAMMO PROCEDURES Ed ited Result - Final from Last 3 Months or Most Recently Relevant to Health Maintenance Insurance [employer] MEDICARE ADVANTAGE [employer] MEDICARE ADVANTAGE Member Subscriber Plan / Payer (Ef fective 2019-Present) Name:Ghislaien Haji Relation to Subscriber:Self Name:RaissaScottpatricia Slade Payer ID:[id number] (NAIC) Type:[facility] MEDIC[facility] Address: [place] [id number] 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 Relationship Specialty Start Date End Date No, Physician PCP - General 11/22/23 Shanta Calderon MD [address] [facility] [address] [place] [address] Consulting Physician Obstetrics and Gynecology 04/05/22 Taylor Francois MD [address] [facility] [address] [place] [address] Fellow Thoracic Surgery 11/07/23 Catie Alfaro MD PhD [id number] [facility] [address] [place] [address] Medical Oncologist/Cosmetic Account Coordinator Medical Oncology 11/16/23 Kaleb Lomeli MD [address] [facility] [address] [place] [address] Radiation Oncologist Radiation Oncology 01/30/24
--- OUTSIDE RECORDS SUMMARY | 2025-05-02 14:31 | XMS_ITS | Clinical Summary ---
Author Organization [facility] [employer] Address [address] 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 This disclosure is being madepursuant to the Care Everywhere program and may not contain all information available regarding this patient. Last updated 18.[facility] [employer] Allergies No known active allergies Medications * Be aware that medications may not be up to date on this document. Alwaysverify current medications with the patient. amLODIPine (NORVASC) 2.5 MG tablet Take 2.5 mg by mouth once daily Active citalopram (CELEXA) 20 MG tablet Take 20 mg by mouth once daily Active ALPRAZolam XR 24hr (XANAX XR) 0.5 MG Take 0.5 mg by mouth once daily Active Immunizations Immunization Administration Dates Next Due INFLUENZA VACCINE, HIGH-DOSE , QUADR. 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 Respiratory Rate 16 08/03/2016 5:24 PM OVENS SUPERVISOR Oxygen Saturation 97% 08/03/2016 5:24 PM OVENS SUPERVISOR Inhaled Oxygen Concentration - - Weight 43.1 kg (95 lb) 08/03/2016 5:24 PM OVENS SUPERVISOR Height 157.5 cm (5' 2) 08/03/2016 5:24 PM OVENS SUPERVISOR Body Mass Index 17.38 08/03/2016 5:24 PM OVENS 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 Plan of Treatment Health Maintenance Due Date Last Done Comments BONE DENSITY TESTING 1950 HEPATITIS C SCREENING 01/16/1967 DTAP/TDAP/TD VACCINES (1 - Tdap) 01/21/1968 PNEUMOCOCCAL VACCINE 50+ (1 of 1 - PCV) 1999 ZOSTER VACCINE (1 of 2) 1999 Respiratory Syncytial Virus (RSV) Vaccine Pt: or over 60 yrs (1 - 1-dose 75+ series) 01/21/2024 DEPRESSION SCREENING 08/08/2024 COVID-19 VACCINE (1 - 2023- season) 2025 INFLUENZA VACCINE (#1) 2025 0, 07/15/2016, 05/08/2015, Additional history exists HEPATITIS B VACCINE Aged Out No longe r eligible based on patient's age to complete this topic HIB VACCINE Aged Out No longer eligi ble based on patient's age to complete this topic HPV VACCINE Aged Out No longer eligi ble based on patient's age to complete this topic MENINGOCOCCAL (Group B) VACCINE SHARED DECISION-MAKING Aged Out No longer eligible based on patient's age to complete this topic MENINGOCOCCAL GROUPS A/C/Y/W VACCINE Aged Out No longer eligible based on patient's age to complete this topic Insurance MEDICARE [facility] MANAGED MEDICARE ADV Care Teams Smoking Tobacco Packing Machine Hand Relationship Specialty Start Date End Date Unknown, Provider PCP - General 07/15/16
--- OUTSIDE RECORDS SUMMARY | 2025-05-02 14:31 | XMS_ITS | Encounter Summary ---
Author Organization [facility] Address [address] [place] [address] Care Team Providers Care Cone Trucker Name Role Phone Shanta Calderon MD Unavailable [phone] Taylor Francois MD Unavailable [phone] Catie Alfaro MD PhD Unavailable [phone] No, Physician Primary Care Provider [phone] Kaleb Lomeli MD Unavailable Encounter Details Date Type Department Care Team (Late st Contact Info) Description 05/01/2025 Telephone [facility] Nutrition Counseling [address] [place] [address] Social History Tobacco Use Types Packs/Day Years [...] on file 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 female with NSCLC on Alteplase Weight: Wt Readings from Last 10 Encounters: 03/26/25 44.3 kg (97 lb 9.6 oz) 03/05/25 44.7 kg (98 lb 9.6 oz) 02/19/25 43.6 kg (96 lb 1.6 oz) 02/05/25 44.5 kg (98 lb) 01/22/25 44.4 kg (97 lb 14.2 oz) 01/08/25 44.1 kg (97 lb 3.2 oz) 12/25/24 44.2 kg (97 lb 6.4 oz) 12/11/24 45.1 kg (99 lb 6.4 oz) 11/27/24 44.9 kg (99 lb) 11/13/24 45 kg (99 lb 3.3 oz) Current BMI: 19.71 Female patients must weigh at least 45.5 kg to calculate ideal body weight Estimated Energy Needs: Based on: 45 kg Calories 2692-5196 kcal/day 30-35 kcal/kg Protein 54-68 g/day 1.2-1.5 g/kg Fluid 3108-1991 ml/day or Per MD 1 ml/kcal or per MD Impression: RD called pt for follow up. Pt states wt is stable at 97 lbs. Pt continues to drink ensure QID and consuming one meal/day with occasional snacks. Pt denies N/V/D/C, states her cough is the only thingbothering her. Pt denies chew/swallow issues. Pt taste is still bland. Pt states burning sensation in mouth has improved mostly. RD to follow. Intervention: Patient with poor intake: - Encourage small frequent meals and snacks with calorie dense foods - Suggest eating every 2-3 hours to improve intake - Include protein with each meal; reviewed sources - Discussed ways to add calories to meals without adding volume - Continue baking soda rinse, cranberry juice, or lemonade for improved taste - Recommend Ensure Plus TID-QID for added nutrients and protein - Reviewed need for at least 1.5L caffeine free fluids to prevent dehydration Monitoring: - Appetite / PO intake - Wt changes - S/S Encouraged pt to reach out with any nutrition needs or concerns. Mary Choi MS, RD, LD Clinical Dietitian [phone] documented in this encounter Plan of Treatment Not on file documented as of this encounter Visit Diagnoses Not on filedocumented in this encounter Care Teams Cone Trucker Relationship Specialty Start Date End Date No, Physician PCP - General 11/22/23 Shanta Calderon MD [address] [facility] [address] [place] [address] Consulting Physician Obstetrics and Gynecology 04/05/22 Taylor Francois MD [address] [facility] [address] [place] [address] Fellow Thoracic Surgery 11/07/23 Catie Alfaro MD PhD [address] DIV IM MEDICAL ONCOLOGY, [address] [place] [address] Medical Oncologist/Glove Turner Medical Oncology 11/16/23 Kaleb Lomeli MD [address] [place] [address] Radiation Oncologist Radiation Oncology 01/30/24 documented as of this encounter
--- OUTSIDE RECORDS SUMMARY | 2025-05-02 14:32 | XMS_ITS | Clinical Summary ---
Author Organization [facility] Address [address] [address] Phone Care Team Providers Care Public Health Technician Name Role Phone Moses Lawrence MD Primary Care Provider [phone] Allergies Active Allergy Reactions Criticality Noted Date Comments Fentanyl Other (See Comments) High 01/28/2014 Reaction: coma, coma Medications citalopram (CELEXA) 20 mg tablet 01/10/2014 Active amLODIPine (NORVASC) 2.5 mg tablet 2.5 mg. 04/21/2015 Active ALPRAZolam (XANAX) 0.5 mg tablet Take 0.5 mg by mouth. 02/24/2017 Active citalopram (CeleXA) 20 mg tablet Take 1 and 1/2 tablets everyday at bedtime 05/26/2017 Active Active Problems Patient Care Coordination No te Formatting of this note migh t be different from the original. Primary Care: Karena Keen MD Referring Provider: Karena Keen MD [address] [place] [address] Other: Dr Krystal Collier Problem Noted Date Diagnosed Date Breast lump 08/21/2014 Personal history of malignant neoplasm of breast 01/28/2014 Overview (01/28/2014): 1997; stage unknown; breast conservation Tongue cancer 01/28/2014 Overview (01/28/2014): 2010; treated with chemoradiation Family History Medical History Relation Name Comments Cancer Mother leukemia Leukemia Mother Relation Name Status Comments Mother Social History Tobacco Use Types Packs/Day Years Used Date Smoking Tobacco: Never Smokeless Tobacco: Never Tobacco Cessation:Counseling Given: No Alcohol Use Standard Drinks/Week Comments Yes 0 (1 standard drink = 0.6 oz pur e alcohol) moderate Comments No Sex and Gender Information Value Date Recorded Sex Assigned at Not on file Legal Sex Female 2:35 PM CDT Gender Identity Not on file Sexual Orientation Not on file Occupation Industry Job Start Date Job End Date Not on file Not on file Not on file Not on file Last Filed Vital Signs Vital Sign Reading Time Taken Comments Blood Pressure 126/88 07/19/2019 10:26 AM IN STORE REPRESENTATIVE Pulse 89 09/02/2014 10:50 AM IN STORE REPRESENTATIVE Temperature - - Respiratory Rate - - Oxygen Saturation - - Inhaled Oxygen Concentration - - Weight 41.3 kg (91 lb) 07/19/2019 10:26 AM IN STORE REPRESENTATIVE Height 154.9 cm (5' 1) 07/19/2019 10:26 AM IN STORE REPRESENTATIVE Body Mass Index 17.19 07/19/2019 10:26 AM IN STORE REPRESENTATIVE Plan of Treatment Health Maintenance Due Date Last Done Comments ZOSTER VACCINE (1 of 2) 1999 DTAP/TDAP/TD VACCINES (1 - Tdap) 12/04/2005 12/04/19 06 OSTEOPOROSIS SCREENING 2014 RSV VACCINE (60+ or ) (1 - 1-dose 75+ series) 01/21/2024 INFLUENZA VACCINE (#1) 2025 6, 05/08/2015, 04/17/2014, Additional history exists PNEUMOCOCCAL VACCINE 50+ YEARS Completed 08/13/2016 , 04/21/2015 Insurance MEDICARE PART A AND B BCBS SUPP Care Teams Public Health Technician Relationship Specialty Start Date End Date Moses Lawrence MD PCP - General Family Practice 12/20/17
--- OUTSIDE RECORDS SUMMARY | 2025-05-02 14:32 | XMS_ITS | Encounter Summary ---
Author Organization [facility] Address [address] [place] [address] Phone Care Team Providers Care Rubber Goods Finisher Name Role Phone Shanta Calderon MD Unavailable [phone] Taylor Francois MD Unavailable [phone] Catie Alfaro MD PhD Unavailable [phone], Physician Primary Care Provider Kaleb Lomeli MD Unavailable [phone] Encounter Details Date Type Department Care Team (Late st Contact Info) Description 05/02/2025 Telephone [facility] Medicine Oncology [address] [place] [address] Amanda Scott, RN Social History Tobacco Use [...] on file 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 documented in this encounter Plan of Treatment Not on file documented as of this encounter Visit Diagnoses Not on filedocumented in this encounter Care Teams Rubber Goods Finisher Relationship Specialty Start Date End Date No, Physician PCP - General 11/22/23 Shanta Calderon MD [address] [facility] [address] [place] [address] Consulting Physician Obstetrics and Gynecology 04/05/22 Taylor Francois MD [address] [facility] [address] [place] [address] Fellow Thoracic Surgery 11/07/23 Catie Alfaro MD PhD [address] DIV MEDICAL ONCOLOGY, [facility] [address] [place] [address] Medical Oncologist/Chain Builder Medical Oncology 11/16/23 Kaleb Lomeli MD [address] [place] [address] Radiation Oncologist Radiation Oncology 01/30/24 documented as of this encounter
== END 2025-05-02 15:39 | disposition home or self-care (01) ==
PROVIDERS: Emergency Provider Emergency Medicine; PCP Nurse Practitioner Family
DX: R04.2 Hemoptysis (principal); Z85.118 Personal history of other malignant neoplasm of bronchus and lung; Z92.21 Personal history of antineoplastic chemotherapy; Z92.3 Personal history of irradiation; Z20.822 Contact with and (suspected) exposure to COVID-19
CPT/HCPCS: 36415; 70491; 71045; 71275; 80053; 85025; 87637; 93005; 99284; Q9967

== ENCOUNTER → 2025-07-08 11:26 | Outpatient (REF) | payer MEDICARE, SELFPAY ==
--- NOTE | 2025-07-08 11:26 | S_PTH ---
PATIENT: Ghislaine Haji LOC: [facility] U#:[id number] AGE/SX: 75/F ROOM: RE07/08/[address]: Pavithra Phipps PA-C : 1950 BED: DIS: SPEC #: [id number] RECD: 07/08/25 12:55 STATUS: BIRD RESlava #: [id number] NAJMA: 07/08/25 11:[address]: Pavithra Phipps DEPT: [facility] Surgical RECD BY: Joanna Sauer ENTERED: 07/08/25 12:56 SP TYPE: Surgical OTHR DR: Rosibel Osullivan APRN Tissues: A - Skin Procedures: Hematoxylin and Eosin Stain Gross and Microscopic Level 4
--- OUTSIDE RECORDS SUMMARY | 2025-07-08 13:06 | XMS_ITS | Clinical Summary ---
Author Organization [facility] Address [address] [place] [address] Phone Care Team Providers Care Order Processing Specialist Name Role Phone Moses Lawrence MD Primary Care Provider [phone] Allergies Active Allergy Reactions Criticality Noted Date [...] Keen MD Referring Provider: Karena Keen MD [address] [place] [address] Other: Dr Krystal Collier Problem Noted Date [...] Comments Blood Pressure 126/88 07/19/2019 10:26 AM OFFICE LEAD Pulse 89 09/02/2014 10:50 AM OFFICE LEAD Temperature - - Respiratory Rate - - Oxygen Saturation - - Inhaled Oxygen Concentration - - Weight 41.3 kg (91 lb) 07/19/2019 10:26 AM OFFICE LEAD Height 154.9 cm (5' 1) 07/19/2019 10:26 AM OFFICE LEAD Body Mass Index 17.19 07/19/2019 10:26 AM OFFICE LEAD Plan of Treatment Health Maintenance Due Date [...] A AND B BCBS SUPP Care Teams Order Processing Specialist Relationship Specialty Start Date End Date Moses Lawrence MD PCP - General Family Practice 12/20/17
--- OUTSIDE RECORDS SUMMARY | 2025-07-08 13:06 | XMS_ITS | Clinical Summary ---
Author Organization [facility] Address [address] [place] [address] Care Team Providers Care Em Physician Name Role Phone Shanta Calderon MD Unavailable Taylor Francois MD Unavailable Catie Alfaro MD PhD Unavailable No, Physician Primary Care Provider [phone] Kaleb Lomeli MD Unavailable Allergies Active Allergy Reactions Criticality Noted Date Comments Fentanyl Other (See comments) High 01/28/2014 Reaction: coma Paclitaxel Flushing (skin) Low 12/20/2023 Noted flushing in face, upper chest. Patient reports feeling hot, no other symptoms noted/reported. Medications citalopram (CeleXA) 20 mg tabletIndicatio ns:Anxiety with Depression Take 1 and 1/2 tablets everyday at bedtime 135 tablet 2 05/26/20 17 Active amLODIPine (NORVASC) 5 mg tabletIndicatio ns:hypertension Take 1 tablet (5 mg total) by mouth nightly 01/29/20 22 Active al & mag hydroxide with simethicone-dip henhydramine-li docaine (MAGIC MOUTHWASH) suspension [id number] s:Squamous cell carcinoma lung, left (HCC) Swish and swallow 15 mL every 4 (four) hours as needed (Mouth sores) 480 mL 1 01/12/20 24 Active prochlorperazin e (Compazine) 10 mg tabletIndicatio ns:Squamous cell lung cancer, left (HCC) Take 1 tablet (10 mg total) by mouth every 6 (six) hours as needed for nausea or vomiting 120 tablet 3 01/30/20 24 Active ALPRAZolam (XANAX) 0.5 mg tabletIndicatio ns:Generalized Anxiety Disorder Take 1 tablet (0.5 mg total) by mouth daily 30 tablet 01/24/20 24 Active guaiFENesin (ROBITUSSIN) syrup 100 mg/5 mL Take 5 mL (100 mg total) by mouth 3 (three) times a day as needed for cough 120 mL 05/18/20 24 Active lidocaine-prilo kurtis creamIndication s:Administratio n of Local Anesthesia Apply dime thickness to port area 60 minutes prior to access and cove with clean occlusive dressing such as Saran/plastic food wrap. RN to access port will remove dressing. 30 g 3 10/31/19 25 Active albuterol HFA (PROVENTIL HFA,VENTOLIN HFA,PROAIR HFA) 90 mcg/actuation inhalerIndicati ons:Squamous cell lung cancer, left (HCC) Inhale 2 puffs every 6 (six) hours as needed for wheezing 18 g 3 12/26/19 25 Active gabapentin (NEURONTIN) solution 250 mg/5 mLIndications:S quamous cell lung cancer, left (HCC) Take 2 mL (100 mg total) by mouth 2 (two) times a day as needed (Can take twice a day if needed) 200 mL 02/20/20 25 Active albuterol 2.5 mg /3 mL (0.083 %) nebulizer solution Take 3 mL (2.5 mg total) by nebulization every 6 (six) hours as needed for wheezing 75 mL 11 03/26/20 25 026 Active ondansetron (ZOFRAN) 8 mg tablet TAKE 1 TABLET BY MOUTH EVERY 8 HOURS NEEDED FOR NAUSEA AND VOMITING. 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 She underwent a chest CT at [facility] on 10/07/2023. 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 Nutrition Counseling [address] [place] [address] Yunior Redmond, MAGUI 06/04/2025 11:00 AM CDT Office Visit [facility] Medicine Oncology [address] [place] [address] [address] [place] [id number] Catie Alfaro MD PhD Squamous cell lung cancer, left (HCC) (Primary Dx); High thyroid stimulating hormone (TSH) level; Decreased appetite 06/04/2025 10:00 AM CDT Lab [facility] Medicine Oncology Lab [address] [place] [address] [address] [place] [address] Squamous cell lung cancer, left (HCC) 06/04/2025 9:45 AM CDT Clinical Support [facility] - Lab Collection [facility] [address] [place] [address] Squamous cell lung cancer, left (HCC) 05/03/2025 2:25 PM CDT - 05/03/2025 11:59 PM CDT Hospital Encounter [facility] [address] [place] [address] Diagnosis unknown Discharge Disposition: Discharge to home or self care 05/03/2025 2:24 PM CDT - 05/03/2025 11:59 PM CDT Hospital Encounter [facility] [address] [place] [id number] Diagnosis unknown Discharge Disposition: Discharge to home or self care 05/02/2025 Orders Only [facility] Scanning, Provider 05/02/2025 Telephone [facility] [address] [facility] [address] [place] [address] Amanda Scott, NOAH 05/02/2025 Telephone [facility] [address] [place] [address] Amanda Scott, NOAH 05/01/[address] [facility] [address] [place] [address] 04/10/[address] [facility] [address] [place] [address] from Last 3 Months [...] Medical History Relation Name Comments Hypertension Father Delgado Florence Hypertension; Cancer Mother Elahallie Florence Leukemia Mother Ela Florence Leukemia; /Leuk emia; Breast cancer Other Self Hypertension Sister Corrie William Hypertensi on; Anesthesia problems Neg Hx Colon cancer Neg Hx Deep vein thrombosis Neg Hx Ovarian cancer Neg Hx Uterine cancer Neg Hx Relation Name Status Comments Father Delgado Florence Mother Ela Florence Other Self Alive Sister Corrie William Other Social History Tobacco Use Types Packs/Day [...] on file Legal Sex Female 10:27 AM [employer]EL [employer] DES[employer] Gender Identity Not on file Sexual Orientation [...] Sign Reading Time Taken Comments Blood Pressure 120/70 06/04/2025 10:43 AM CDT Pulse 95 06/04/2025 10:43 AM CDT Temperature 37.3 C (99.1 F) 06/04/2025 10:43 AM CDT Respiratory Rate 18 06/04/2025 10:43 AM CDT Oxygen Saturation 96% 06/04/2025 10:43 AM CDT Inhaled Oxygen Concentration - - Weight 44.6 kg (98 lb 6.4 oz) 06/04/2025 10:43 A M CDT Height 152 cm (4' 11.84) 06/04/2025 10:43 AM CD T Body Mass Index 19.32 06/04/2025 10:43 AM CDT Plan of Treatment Health Maintenance Due Date Last Done Comments Depression Screening 1950 Hepatitis C Screening 1950 Osteoporosis Screening-Bone Density Scan 1950 Hepatitis B Screening 1967 DTaP/Tdap/Td Vaccine (1 - Tdap) 12/04/2005 6 Zoster Vaccine (2 of 2) 08/06/2019 06/11/2019 Well Visit 65+ 04/05/2023 04/05/2022, 11/0 09/2019, 09/29/2017 Fall Risk Assessment 12/01/2024 12/02/2023, 11/24/19 24 Covid-19 Vaccine (2024-09 6 season) 2025 05/08/2021, 10/01/2020, 09/10/2020 Influenza Vaccine (#1) 2025 , 07/16/2023, 06/10/2022, Additional history exists Pneumococcal vaccine 65+ Completed 08/13/2016, 04/08 Breast Cancer Screening-Mammogram Discontinued 04/06/2022, 04/05/2022, 04/05/2022 Medical Devices Implanted Type Area Malt Specifications Control Assistant Device Identifier Shelf Expiration Date Model / Serial / Lot [employer] Excela Low Porfile Power Port 8fr 1.6mm 1 Lumen [id number] - [id number] Implanted:Qty: 1 on 11/21/2023 by Jorge A Reid MD at [facility] [employer] 06/11/2028 [id number] / / [id number] Procedures Procedure Name Priority Date/Time Associated Diagnosis Comments EGFR Routine 06/04/2025 10:23 AM CDT Squamous cell lung cancer, left (HCC) DIFFERENTIAL AUTO Routine 06/04/2025 10: 23 AM CDT Squamous cell lung cancer, left (HCC) COMPREHENSIVE METABOLIC PANEL Routine 06/04/2025 10:23 AM CDT Squamous cell lung cancer, left (HCC) CBC WITH AUTO DIFFERENTIAL Routine 06/04/2025 10:23 AM CDT Squamous cell lung cancer, left (HCC) TSH Routine 06/04/2025 10:23 AM CDT Squamous cell lung cancer, left (HCC) CT BODY OUTSIDE CONSULT Routine 05/03/2025 2:25 PM CDT Diagnosis unknown NEURO CT OUTSIDE CONSULT Routine 05/03/2025 2:25 PM CDT Diagnosis unknown CARDIOLOGY DOCUMENT SCAN 05/02/2025 SCAN - LABS 05/02/2025 SCAN - RADIOLOGY/IMAGING 05/02/2025 SCREENING MAMMOGRAM BILATERAL W MELECIO Schedule Routine, Read Routine (OP Routine) 04/05/2022 3:48 PM CDT Screening mammogram, encounter for from Last 3 Months or Most Recently Relevant to Health Maintenance Results * eGFR (06/04/2025 10:23 AM CDT) eGFR 68 >=60 mL/min/1. 73 m2 Comment: Interpretive Data [...] interpretive data was last reviewed 2021. Blood 06/04/2025 10:2 3 AM CDT 06/04/2025 10:26 AM CDT us Catie Alfaro MD PhD LAB BLOOD ORDERABLES Final Result [facility] Department [place] [address] * (ABNORMAL) Differential, auto (06/04/2025 10:23 AM CDT) Neutrophil abs 8.51(H) 1.50 - 6.50 K/cumm Comment:Testing performed by : [facility], [address] [place] [address] Lymphocyte abs 0.44(L) 0.80 - 3.30 K/cumm [facility] Comment:Testing performed by : [facility], [address] [place], [place] [phone] Monocyte abs 0.94(H) 0.20 - 0.80 K/cumm [facility] Comment:Testing performed by : [facility], [address] [place], [place] [id number] Eosinophil abs 0.16 0.00 - 0.50 K/cumm [facility] Comment:Testing performed by : [facility], [address] [place], [place] [id number] Basophil abs 0.06 0.00 - 0.10 K/cumm [facility] Comment:Testing performed by : [facility], [address] [place] [address] Neutrophil pct 84.2 % [facility] Comment: Interpretive Data Percent cell count reference ranges are not reported, since discordance with absolute values may lead to misinterpretation of CBC data. Current Interpretive Data was last revised on 2017. Testing performed by: [facility], [address] [place], [place] [phone] Lymphocyte pct 4.3 % [facility] Comment: Interpretive Data Percent cell count reference ranges are not reported, since discordance with absolute values may lead to misinterpretation of CBC data. Current Interpretive Data was last revised on 2017. Testing performed by: [facility], [address] [place] [phone] Monocyte pct 9.3 % [facility] Comment: Interpretive Data Percent cell count reference ranges are not reported, since discordance with absolute values may lead to misinterpretation of CBC data. Current Interpretive Data was last revised on 2017. Testing performed by: [facility], [address] [place] [phone] Eosinophil pct 1.6 % [facility] Comment: Interpretive Data Percent cell count reference ranges are not reported, since discordance with absolute values may lead to misinterpretation of CBC data. Current Interpretive Data was last revised on 2017. Testing performed by: [facility], [address] [place] [address] Basophil pct 0.6 % [facility] Comment: Interpretive Data Percent cell count reference ranges are not reported, since discordance with absolute values may lead to misinterpretation of CBC data. Current Interpretive Data was last revised on 2017. Testing performed by: [facility], [address] [place] [address] Blood 06/04/2025 10:2 3 AM CDT 06/04/2025 10:24 AM CDT us Catie Alfaro MD PhD LAB BLOOD ORDERABLES Final Result [facility] [place] [address] * (ABNORMAL) CBC with auto differential (06/04/2025 10:23 AM CDT) WBC 10.11(H) 3.80 - 9.90 K/cumm Comment:Testing performed by : [facility], [address] [place] [address] Hgb 10.2(L) 11.9 - 15.5 g/dL [facility] Comment:Testing performed by : [facility], [address] [place] [address] Hct 31.8(L) 35.6 - 45.5 % [facility] Comment:Testing performed by : [facility], [address] [place] [address] Plt 284 150 - 400 K/cumm [facility] Comment:Testing performed by : [facility], [address] [place] [address] MPV 8.0 6.8 - 10.4 fL [facility] Comment:Testing performed by : [facility], [address] [place], [place] [phone] RBC 3.66(L) 3.90 - 5.20 M/cumm [facility] Comment:Testing performed by : [facility], [address] [place], [place] [phone] MCV 87.1 81.3 - 96.[address] [facility] Comment:Testing performed by : [facility], [address] [place], [place] [phone] MCH 28.0 27.1 - 33.[address] [facility] Comment:Testing performed by : [facility], [address] [place], [place] [phone] MCHC 32.2(L) 32.3 - 35.7 g/dL [facility] Comment:Testing performed by : [facility], [address] [place] [address] RDW CV 14.1 11.1 - 14.9 % [facility] Comment:Testing performed by : [facility], [address] [place] [address] NRBC abs 0.00 0.00 - 0.01 K/cumm [facility] Comment:Testing performed by : [facility], [address] [place] [address] Blood 06/04/2025 10:2 3 AM CDT 06/04/2025 10:24 AM CDT Catie Alfaro MD PhD LAB BLOOD ORDERABLES Final Result [facility] Department [place] [address] * (ABNORMAL) TSH (06/04/2025 10:23 AM CDT) Thyroid Stimulating Hormone 35.10(H) 0.30 - 4.20 mcIUnit/mL Blood 06/04/2025 10:2 3 AM CDT 06/04/2025 10:26 AM CDT us Catie Alfaro MD PhD LAB BLOOD ORDERABLES Final Result [facility] [place] [address] * Comprehensive metabolic panel (06/04/2025 10:23 AM CDT) Sodium 140 135 - 145 mmol/L Potassium, pl 4.4 3.3 - 4.9 mmol/L [facility] Chloride 101 97 - 110 mmol/L [facility] CO2 31 22 - 32 mmol/L [facility] Anion gap 8 2 - 15 mmol/L [facility] BUN 24 6 - 25 mg/dL [facility] Creatinine 0.88 0.60 - 1.10 mg/dL [facility] Glucose 112 70 - 199 mg/dL [facility] Comment: Interpretive Data Fasting glucose >/= 126 [...] classification and Diagnosis of Diabetes Diabetes Care 202; 46: S19-S40. Current interpretive data was last revised 2022. Calcium 9.8 8.5 - 10.3 mg/dL [facility] Bilirubin, total 0.2 0.1 - 1.2 mg/dL [facility] Protein, pl 7.4 6.5 - 8.5 g/dL [facility] Albumin 3.8 3.5 - 5.0 g/dL [facility] Alk phos 76 40 - 130 Units/L [facility] ALT 9 7 - 45 Units/L [facility] AST 16 10 - 45 Units/L [facility] Blood 06/04/2025 10:2 3 AM CDT 06/04/2025 10:26 AM CDT us Catie Alfaro MD PhD LAB BLOOD ORDERABLES Final Result [facility] [place] [address] * CT Body Outside Consult (05/03/2025 2:25 PM CDT) Anatomical Region Laterality Modality Body N/A Computed Tomogra phy 05/06/2025 12:4 9 PM CDT Impressions 05/06/2025 12:49 PM CDT 1. Stable post radiation changes in the left hilum without evidence of recurrent disease. The findings, conclusions and recommendations within this report do not replace the initial findings, conclusions and recommendations made at the facility where the study was performed based upon the imaging and clinical condition at that time. Comparison with the prior report and clinical history is necessary. The provided images may or may not represent the galena source data set and thus may contain changes that may lower the accuracy of this second-opinion interpretation. Electronically signed by: Walter Longo M.D. Narrative 05/06/2025 12:49 PM CDT EXAMINATION: RADIOLOGY CONSULTATION ON OUTSIDE IMAGING STUDY STUDY INITIALLY PERFORMED: 05/02/2025 at [facility]. TYPE OF STUDY: Multiple CT images of the chest with intravenous contrast are provided at the time of this interpretation. CONTRAST ROUTE: Intravenous The protocol was adequate to address the clinical question. The outside final report was not available at the time of this second opinion interpretation. TYPE OF CONSULTATION: Consult on outside imaging study with images submitted through Outside Image Sharing Service DATE OF CONSULTATION: 05/06/2025 12:41 PM HISTORY: Lung cancer COMPARISON: 02/28/2025 FINDINGS: Comparison is made to 02/28/2025 again seen is post radiation change in the left hilum as well as some tangential radiation change in the right upper lobe. No new suspicious pulmonary nodules or masses. No pleural effusion or pneumothorax. There are changes of bilateral mastectomy. Left internal jugular Port-A-Cath has tip at the superior cavoatrial junction. No supraclavicular, axillary, mediastinal, or hilar lymphadenopathy. No pulmonary embolism. Heart size is normal. There is small pericardial fluid, similar to prior. Upper abdomen is normal. There is a small hiatal hernia. Bone windows demonstrate no lytic or blastic lesions. Procedure Note Walter Longo MD - 05/06/2025 EXAMINATION: RADIOLOGY CONSULTATION ON OUTSIDE IMAGING STUDY STUDY INITIALLY PERFORMED: 05/02/2025 at [facility]. TYPE OF STUDY: Multiple CT images of the chest with intravenous contrast are provided at the time of this interpretation. CONTRAST ROUTE: Intravenous The protocol was adequate to address the clinical question. The outside final report was not available at the time of this second opinion interpretation. TYPE OF CONSULTATION: Consult on outside imaging study with images submitted through Outside Image Sharing Service DATE OF CONSULTATION: 05/06/2025 12:41 PM HISTORY: Lung cancer COMPARISON: 02/28/2025 FINDINGS: Comparison is made to 02/28/2025 again seen is post radiation change in the left hilum as well as some tangential radiation change in the right upper lobe. No new suspicious pulmonary nodules or masses. No pleural effusion or pneumothorax. There are changes of bilateral mastectomy. Left internal jugular Port-A-Cath has tip at the superior cavoatrial junction. No supraclavicular, axillary, mediastinal, or hilar lymphadenopathy. No pulmonary embolism. Heart size is normal. There is small pericardial fluid, similar to prior. Upper abdomen is normal. There is a small hiatal hernia. Bone windows demonstrate no lytic or blastic lesions. IMPRESSION: 1. Stable post radiation changes in the left hilum without evidence of recurrent disease. The findings, conclusions and recommendations within this report do not replace the initial findings, conclusions and recommendations made at the facility where the study was performed based upon the imaging and clinical condition at that time. Comparison with the prior report and clinical history is necessary. The provided images may or may not represent the galena source data set and thus may contain changes that may lower the accuracy of this second-opinion interpretation. Electronically signed by: Walter Longo M.D. us Catie Alfaro MD PhD IMG CT PROCEDURES Final Re sult * Neuro CT Outside Consult (05/03/2025 2:25 PM CDT) Anatomical Region Laterality Modality N/A Computed Tomogra phy 05/03/2025 3:09 PM CDT Impressions 05/03/2025 4:18 PM CDT 1. Unchanged post treatment findings of the neck without evidence of recurrent/metastatic disease in the neck. 2. Findings in the chest including left lung mass are characterized separately on dedicated chest CT. The findings, conclusions and recommendations within this report do not replace the initial findings, conclusions and recommendations made at the facility where the study was performed based upon the imaging and clinical condition at that time. Comparison with the prior report and clinical history is necessary. The provided images may or may not represent the galena source data set and thus may contain changes that may lower the accuracy of this second-opinion interpretation. Dictated by: Junior Anderson MD The radiology attending physician has personally reviewed this study, and had reviewed and/or edited this written report and agrees with it. Electronically signed by: Sd Luna M.D. Narrative 05/03/2025 4:18 PM CDT EXAMINATION: RADIOLOGY CONSULTATION ON OUTSIDE IMAGING STUDY STUDY INITIALLY PERFORMED: 05/02/2025 at [facility]. TYPE OF STUDY: Multiple CT images of the neck with intravenous contrast are provided at the time of this interpretation. CONTRAST ROUTE: Contrast was administered via the intravenous route. The protocol was adequate to address the clinical question. The outside final report was not available at the time of this second opinion interpretation. 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 No suspicious nodular enhancement or lymphadenopathy. Unchanged erosive changes of the bilateral mandibular body with areas of cortical breakthrough. Scattered subcentimeter lymph nodes are seen in the neck. None are pathologically enlarged or abnormally enhancing. The muscles of the neck are normal. Chronically occluded right internal jugular vein. Fascial planes are preserved and the deep spaces of the neck are normal. The visualized airway is widely patent. The base of the skull and the temporal bones are normal. Limited views of the brain including the cerebellum and brainstem are normal. Bilateral lens replacements. Multilevel degenerative changes of the cervical spine. . Findings in chest including left lung mass are characterized separately on dedicated chest CT. Procedure Note Sd Luna MD - 05/03/2025 EXAMINATION: RADIOLOGY CONSULTATION ON OUTSIDE IMAGING STUDY STUDY INITIALLY PERFORMED: 05/02/2025 at [facility]. TYPE OF STUDY: Multiple CT images of the neck with intravenous contrast are provided at the time of this interpretation. CONTRAST ROUTE: Contrast was administered via the intravenous route. The protocol was adequate to address the clinical question. The outside final report was not available at the time of this second opinion interpretation. 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 No suspicious nodular enhancement or lymphadenopathy. Unchanged erosive changes of the bilateral mandibular body with areas of cortical breakthrough. Scattered subcentimeter lymph nodes are seen in the neck. None are pathologically enlarged or abnormally enhancing. The muscles of the neck are normal. Chronically occluded right internal jugular vein. Fascial planes are preserved and the deep spaces of the neck are normal. The visualized airway is widely patent. The base of the skull and the temporal bones are normal. Limited views of the brain including the cerebellum and brainstem are normal. Bilateral lens replacements. Multilevel degenerative changes of the cervical spine. . Findings in chest including left lung mass are characterized separately on dedicated chest CT. IMPRESSION: 1. Unchanged post treatment findings of the neck without evidence of recurrent/metastatic disease in the neck. 2. Findings in the chest including left lung mass are characterized separately on dedicated chest CT. The findings, conclusions and recommendations within this report do not replace the initial findings, conclusions and recommendations made at the facility where the study was performed based upon the imaging and clinical condition at that time. Comparison with the prior report and clinical history is necessary. The provided images may or may not represent the galena source data set and thus may contain changes that may lower the accuracy of this second-opinion interpretation. Dictated by: Junior Anderson MD The radiology attending physician has personally reviewed this study, and had reviewed and/or edited this written report and agrees with it. Electronically signed by: Sd Luna M.D. us Catie Alfaro MD PhD IMG CT PROCEDURES Final Re sult * SCAN - RADIOLOGY/IMAGING (05/02/2025) Anatomical Region Laterality Modality Other us Provider Scanning Edited Result - Final * SCAN - LABS (05/02/2025) us Provider Scanning Final Result * Cardiology Document Scan (05/02/2025) Anatomical Region Laterality Modality Other us Provider Scanning [facility] C[facility] PROCEDURES Final Result * (ABNORMAL) Screening Mammogram Bilateral W Melecio [...] Insurance UHC MEDICARE ADVANTAGE UHC MEDICARE ADVANTAGE UHC MEDICARE ADVANTAGE Advance Directives For more information, please contact: [phone] * Full Code (Latest Code Status on File) Date Activated Date Inactivated Comments 01/05/2024 11:40 AM 01/06/2024 4:35 AM * Full Code Date Activated Date Inactivated Comments 11/28/2023 2:22 PM 12/02/2023 8:15 PM * Full Code Date Activated Date Inactivated Comments 11/21/2023 7:23 AM 11/22/2023 4:39 AM Care Teams Em Physician Relationship Specialty Start Date End Date No, Physician PCP - General 11/22/23 Shanta Calderon MD [address] [address] Consulting Physician Obstetrics and Gynecology 04/05/22 Taylor Francois MD [address] [address] Fellow Thoracic Surgery 11/07/23 Catie Alfaro MD PhD [address] [address] Medical Oncologist/Batch Or Continuous Still Operator Medical Oncology 11/16/23 Kaleb Lomeli MD [address] [facility] [address] [place] [address] Radiation Oncologist Radiation Oncology 01/30/24
--- OUTSIDE RECORDS SUMMARY | 2025-07-08 13:06 | XMS_ITS | Clinical Summary ---
Author Organization [facility] Address [address] [place] [address] Care Team Providers Care Portable Track Crew Chief Name Role Phone Unknown, Provider Primary Care Provider Unavaila ble Source Comments [facility],non-owned Affiliates and Associated Physician Practices is amultiple site organization consisting of ambulatory clinics and hospital sitesin [place], [place], [place] and [place]. This disclosure is being madepursuant to the Care Everywhere program and may not contain all information available regarding this patient. Last updated 18.[facility] Allergies No known active allergies Medications * [...] on file Legal Sex Female 9:35 AM LOG MANAGER Gender Identity Not on file Sexual Orientation Not on file Last Filed Vital Signs Vital Sign Reading Time Taken Comments Blood Pressure 126/84 08/03/2016 5:24 PM LOG MANAGER Pulse 105 08/03/2016 5:24 PM LOG MANAGER Temperature 37.3 C (99.2 F) 08/03/2016 5:24 PM LOG MANAGER Respiratory Rate 16 08/03/2016 5:24 PM LOG MANAGER Oxygen Saturation 97% 08/03/2016 5:24 PM LOG MANAGER Inhaled Oxygen Concentration - - Weight 43.1 kg (95 lb) 08/03/2016 5:24 PM LOG MANAGER Height 157.5 cm (5' 2) 08/03/2016 5:24 PM LOG MANAGER Body Mass Index 17.38 08/03/2016 5:24 PM LOG MANAGER Plan of Treatment Health Maintenance Due Date Last Done Comments BONE DENSITY TESTING 1950 HEPATITIS C SCREENING 01/16/1967 DTAP/TDAP/TD VACCINES (1 - Tdap) 01/21/1968 PNEUMOCOCCAL VACCINE 50+ (1 of 1 - PCV) 1999 ZOSTER VACCINE (1 of 2) 1999 Respiratory Syncytial Virus (RSV) Vaccine Pt: or over 60 yrs (1 - 1-dose 75+ series) 01/21/2024 DEPRESSION SCREENING 08/08/2024 COVID-19 VACCINE (1 - 2024- season) 2025 INFLUENZA VACCINE (#1) 2025 0, [...] age to complete this topic Insurance MEDICARE [facility] MANAGED MEDICARE ADV Care Teams Portable Track Crew Chief Relationship Specialty Start Date End Date Unknown, Provider PCP - General 07/15/16
--- OUTSIDE RECORDS SUMMARY | 2025-07-08 13:06 | XMS_ITS | Data Portability ---
Author Organization [facility], Main Office Address [address] [place] [address] Assessment No assessment recorded. Plan of Treatment Reminders Order Date Submit Date Provider Last Modified By Organization Details Last Modified Time Details Appointments None recorded. Lab None recorded. Referral None recorded. Procedures None recorded. Surgeries None recorded. Imaging MAMMO, screening, bilateral 2022 023 [email or web address] [address] [facility] Mammogram Dept, [address] [place], [address], 3 08:45:26 US, breast, bilateral, [facility] [address] [facility], [place], [address], 3 14:27:28 Medication Orders amlodipine 5 mg tablet 2023 024 [id number], [address] [place], [id number], 4 15:58:54 alprazolam 0.5 mg tablet 2023 024 [id number], [address] [employer] [place], [id number], 4 15:58:47 citalopram 20 mg tablet 2023 024 [facility] [place] [address] [id number], [address] [place], [id number], 21:56:19 Patient TargetsNo targets recorded. Patient Instructions Encounter Date Encounter Id Patient Instructions Last Modified By Organization Details Last Modified Time 03/22/2024 [id number] dementia rating scale-2* [email or web address] Not available 03/22/2024 16:11:00 alcohol misuse* [email or web address] Not available 03/23/2024 08:50:41 depression screening* [email or web address] Not available 03/23/2024 08:50:55 multi-dimensiona l health assessment questionnaire* [email or web address] Not available 03/22/2024 16:10:39 Personalized Hea lt Plan and Screening Recommendations Advance Directives - Do you have one? No I have no recommendations Advance Directives - Do we have your advance directive on file in your health record? Primary Prevention/Interven tion (prevents or decreases the chance of common diseases from occurring) Smoking Risk: Non Smoker I have no recommendations Alcohol Misuse Screening: Negative I have no recommendations Weight: Underweight monitor weight weekly and call if continue to lose weight Physical activity: Need more exercise/physical activity minimum of 20-30 minutes activity that causes mild breathlessness/day Nutrition: Average Eat Heart Healthy Diet Fall Risk (screened today): Low I have no recommendations Vaccines Pneumococcal: No further needed Influenza: Your next one in the fall of this year Chronic Disease Risks Stroke: Intermediate Risk Active diagnosis, Continue current treatment plan Heart Attack: Intermediate Risk Active diagnosis, Continue current treatment plan Clogging of the Arteries: Intermediate Risk Active diagnosis, Continue current treatment plan Diabetes: Low Risk I have no recommendations Secondary Prevention/Interven tion (detects treatable diseases before they may cause symptoms, disability, or ) Breast Cancer Screening with mammogram: Recommended today Cervical/Uterine/Ov emilia Cancer Screening: No screening necessary Osteoporosis Screening: Recommended today Date Screening Last Performed: Colon Cancer Screening: Colonoscopy Recommended Date Screening Last Performed: Eye Disease Screening: No Eye exam necessary Dementia Risk: Low I have no recommendations Depression Screening: Negative I have no recommendations [email or web address] Not available 2024 08:18:45 Reason for Referral None Reported. Results Created Date Observation Date Name Description Value Unit Range Abnormal Flag Note LastModifiedBy Organization Detail LastModifiedTime 06/15/20 21 06/15/2021 urina lysis , dipst ick Leukocytes (reference range: negative tim/ l) Negati ve Not Available [address] , [address], [place], [address], 06/15/2021 11:20:27 06/15/20 21 06/15/2021 urina lysis , dipst ick Nitrite (reference rage: negative mg/dl) negati ve Not Available [address] , [address], [place], [address], 06/15/2021 11:20:27 06/15/20 21 06/15/2021 urina lysis , dipst ick Urobilinogen (reference range: 0.2-1 mg/dl) 0.2 Not Available [address] , [address], [place], [address], 06/15/2021 11:20:27 06/15/20 21 06/15/2021 urina lysis , dipst ick Protein (reference range: negative mg/dl) 30 Not Available [address] , [address], [place], [address], 06/15/2021 11:20:27 06/15/20 21 06/15/2021 urina lysis , dipst ick pH (reference range: 5-7) 8.5 Not Available [address] , [address], [place], [address], 06/15/2021 11:20:27 06/15/20 21 06/15/2021 urina lysis , dipst ick Blood (reference range: negative Wilfredo/ l) Negati ve Not Available [address] , [address], [place], [address], 06/15/2021 11:20:27 06/15/20 21 06/15/2021 urina lysis , dipst ick Specific Goodman (reference range: 1.005-1.030) 1.015 Not Available [address] , [address], [place], [address], 06/15/2021 11:20:27 06/15/20 21 06/15/2021 urina lysis , dipst ick Ketone (reference range: negative mg/dl) Small Not Available [address] , [address], [place], [address], 06/15/2021 11:20:27 06/15/20 21 06/15/2021 urina lysis , dipst ick Bilirubin (reference range: negative mg/dl) Negati ve Not Available [address] , [address], [place], [address], 06/15/2021 11:20:27 06/15/20 21 06/15/2021 urina lysis , dipst ick Appearance Clear Not Available [address] , [address], [place], [address], 06/15/2021 11:20:27 06/15/20 21 06/15/2021 urina lysis , dipst ick Color Yellow Not Available [address] , [address], [place], [address], 06/15/2021 11:20:27 04/06/20 22 04/05/2022 MAMMO , román chairez, digit al, bilat eral No observ ation record ed. [id number] [facility] [address], [place], [address], 10/06/2022 19:30:27 04/06/20 22 04/05/2022 MAMMO , scree contreras, bilat eral No observ ation record ed. [id number] [facility] [address], [place], [address], 10/06/2022 19:30:27 02/12/20 23 02/11/2023 US, breas t, bilat eral, compl ete No observ ation record ed. [email or web address] [facility] [address], [place], [address], 02/14/2023 11:24:56 10/07/19 24 10/07/2023 XR, chest , 2 view No observ ation record ed. [email or web address] [address], [place], [address], 10/07/2023 13:36:58 10/07/19 24 10/07/2023 CT, neck, soft tissu e, w/ contr ast No observ ation record ed. [email or web address] [address], [place], [address], 10/10/2023 10:56:35 10/26/19 24 10/25/2023 stres s echoc ardio gram No observ ation record ed. [address] [address], [place], [address], 10/26/2023 16:16:35 Result Notes None recorded. Problems Name Problem SNOMED Code Status Onset Date Resolution Date Notes Provider Name and Address Organization Details Recorded Time Raynaud's phenomeno n 209404797 Active 2017 Not Available [facility] 19:28:20 Tongue carcinoma 454374353 Active 2017 Not Available [employer] 19:28:20 Hypertens nils disorder 71644128 Active 2017 Not Available [facility] 3 19:28:21 Mitral valve prolapse 242967619 Active 2017 Not Available [facility] 3 19:28:21 Eczema 80955933 Active 2017 Not Available [facility] 3 19:28:21 Costal chondriti s 73457550 Active 2017 Not Available [facility] 3 19:28:21 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 [employer] [facility] [employer] [facility] 4 14:39:52 Anxiety 60144721 Active 2023 Pamela Navarro MD [address] [facility], [address], [place], [address] , [facility] [employer] [facility] [employer] [facility] 4 14:40:31 Upper respirato ry infection 61687830 Active 2023 Phuc Briones RN [facility], [employer] [facility] [employer] [facility] 4 10:22:59 Primary malignant neoplasm of left lung 893871770 Active 2023 chemo 6 weeks , radiation 6 weeks ELYSIA Guzman [address] [facility], [address], [place], [address] , [facility] [employer] [facility] [employer] [facility] 4 15:55:32 Notes:Some problems listed i n Documents: #[id number], #[id number] could not be added to this patient's chart. Please review these documents and add these problems to the patient's chart manually as needed. Problem Notes None recorded. Procedures Surgical History Date Name Laterality Status Provider Name and Address Organization Details Recorded Time 4 Medicare Wellness CPT Code, subsequent completed November NOAH Hooper [facility] [employer] [facility] 2024 08:11:08 Imaging Results None recorded. Procedure Notes None recorded. Medical Equipment None Reported. Allergies Allergen ID Allergen Name Allergen Category Reaction Reaction Severity Criticality Documentation Date Start Date Code Code System Note Provider Name and Address Organization Details Recorded Time 21285 fentanyl medicatio n other Not available Not available 03/22/2024 4337 RxNorm Pt repor ts went into coma with this med Ariella Escudero RN null, [place] [employer] [facility] 4 15:42:09 Medications Name Sig Start Date Stop Date Status Note LastModified by Organization Details LastModified Time diphenhydra mine 12.5 mg/5 ml active Not Available Not Available Not Available celecoxib 200 mg capsule TAKE 1 CAPSULE BY MOUTH THE EVENING BEFORE SURGERY THEN 1 CAPSULE TWICE DAILY FOR 7 DAYS 02/07 completed Not Available Not Available Not Available cyclobenzap rine 10 mg tablet 02/07 completed Not Available Not Available Not Available amoxicillin 500 mg capsule DNC 09/18 completed Not Available Not Available Not Available doxycycline hyclate 100 mg capsule active Not Available Not Available N ot Available azithromyci n 250 mg tablet FOLLOW PACKAGE DIRECTION S active Not Available Not Available No t Available benzonatate 200 mg capsule active Not Available Not Available Not Available hydrocodone 5 mg-acetamin ophen 325 mg tablet TAKE 1 TABLET BY MOUTH EVERY 6 HOURS FOR UP TO 10 DOSES NEEDED FOR PAIN active Not Available Not Available No t Available ondansetron HCl 8 mg tablet TAKE 1 TABLET BY MOUTH EVERY 8 HOURS NEEDED FOR NAUSEA AND VOMITING. USE IF PROCHLOPE RAZINE DOES NOT STOP NAUSEA active Not Available Not Available No t Available ondansetron HCl 4 mg tablet TK 1 T BID PRF NAUSEA 08/24 completed Not Available Not Available Not Available gabapentin 250 mg/5 mL oral solution 03/22 completed Not Available Not Available Not Available amlodipine 2.5 mg tablet TAKE 1 TABLET BY MOUTH EVERY DAY active Not Available Not Available No t Available amlodipine 5 mg tablet TAKE 1 TABLET BY MOUTH EVERY DAY active Not Available Not Available No t Available prochlorper azine maleate 10 mg tablet active Not Available Not Available No t Available ciprofloxac in 500 mg tablet TAKE 1 TABLET BY MOUTH TWICE DAILY FOR 10 DAYS 03/22 completed Not Available Not Available Not Available olanzapine 2.5 mg tablet active Not Available Not Available Not Available guaifenesin 100 mg/5 mL oral liquid active Not Available Not Available Not Available amoxicillin 500 mg tablet TAKE 1 TABLET BY MOUTH THREE TIMES DAILY UNTIL GONE active Not Available Not Available No t Available levothyroxi ne 25 mcg tablet TAKE 1 TABLET BY MOUTH [employer] ENGINEER BEFORE BREAKFAST active Not Available Not Available No t Available alprazolam 0.5 mg tablet TAKE 1 TABLET BY MOUTH EVERY DAY NEEDED active Not Available Not Available No t Available citalopram 20 mg tablet TAKE 1 TABLET BY MOUTH EVERY DAY active Not Available Not Available No t Available levothyroxi ne 50 mcg tablet TAKE 1 TABLET BY MOUTH EVERY MORNING BEFORE BREAKFAST active Not Available Not Available No t Available cephalexin 500 mg capsule TAKE 1 CAPSULE FOUR TIMES DAILY FOR 7 DAYS UNTIL ALL TAKEN 02/07 completed Not Available Not Available Not Available erythromyci n 5 mg/gram (0.5 %) eye ointment 06/11 completed Not Available Not Available Not Available cephalexin 250 mg/5 mL oral suspension 03/22 completed Not Available Not Available Not Available sulfamethox azole 200 mg-trimetho prim 40 mg/5 mL oral suspension 03/22 completed Not Available Not Available Not Available methylpredn isolone 4 mg tablets in a dose pack TK UTD 06/11 completed Not Available Not Available Not Available doxycycline hyclate 20 mg tablet TAKE 2 TABLETS BY MOUTH EVERY DAY ON AN EMPTY STOMACH 02/07 completed Not Available Not Available Not Available ondansetron 4 mg disintegrat ing tablet 02/07 completed Not Available Not Available Not Available cefdinir 300 mg capsule active Not Available Not Available Not Available amoxicillin 875 mg-potassiu m clavulanate 125 mg tablet TAKE 1 TABLET BY MOUTH TWICE DAILY UNTIL ALL TAKEN active Not Available Not Available No t Available Antacid Regular Strength 200 mg-200 mg-20 mg/5 mL oral suspension active Not Available Not Available N ot Available hydrocodone 7.5 mg-acetamin ophen 325 mg/15 mL oral solution TAKE 15 ML BY MOUTH EVERY 6 HOURS NEEDED FOR PAIN 03/22 completed Not Available Not Available Not Available pregabalin 75 mg capsule TAKE 1 CAPSULE BY MOUTH TWICE DAILY FOR 7 DAYS. BEGIN WITH 1 DOSE THE NIGHT BEFORE SURGERY THEN. CONTINUE 2 TIMES DAILY WHEN DISCHARGE D TO HOME 02/07 completed Not Available Not Available Not Available chlorhexidi ne gluconate 0.12 % mouthwash SWISH/SPI T 10 TO 15 ML TWICE DAILY active Not Available Not Available No t Available amlodipine 08/24 completed Not Available Not Available Not Available Prepopik 10 mg-3.5 gram-12 gram oral powder packet UTD 08/24 completed Not Available Not Available Not Available PreviDent 5000 Booster Plus 1.1 % dental paste BRUSH TEETH TWICE DAILY FOR 2 MINUTES AND SPIT 02/07 completed Not Available Not Available Not Available Restasis MultiDose 0.05 % eye drops INSITLL ONE GTT IN OU BID UTD active Not Available Not Available No t Available Fluzone High-Dose 2019-20 (PF) 180 mcg/0.5 mL intramuscul ar syringe ADM 0.5ML IM UTD 06/11 completed Not Available Not Available Not Available Vitals Date Recorded Body height Body mass index (BMI) Body weight Body temperature Heart rate Oxygen saturation Systolic And Diastolic Provider Name and Address Organization Details Last Updated DateTime 3 154.94 cm 17.2 kg/m2 48357.9 1 g 96.4 [degF] 95 /min 99 % 122/60 mm[Hg] ISAIAH Carrillo [facility] [employer] [facility] 3 15:56:55 Date Recorded Body height Body mass index (BMI) Body weight Body temperature Heart rate Respiratory rate Systolic And Diastolic Provider Name and Address Organization Details Last Updated DateTime 4 154.94 cm 17.6 kg/m2 68510.0 9 g 98.4 [degF] 64 /min 16 /min 146/88 mm[Hg] Ariella Escudero RN [facility] [employer] [facility] 4 15:46:25 Date Recorded Body mass index (BMI) Body height Oxygen saturation Heart rate Body temperature Body weight Systolic And Diastolic Provider Name and Address Organization Details Last Updated DateTime 1 18.1 kg/m2 154.94 cm 94 % 84 /min 97.2 [degF] 08365.8 7 g 140/90 mm[Hg] Not Available [facility] 3 19:27:49 Social History None recorded. Functional Status None recorded. Mental Status None recorded. Family History Nothing Reported. Medical History No medical history recorded. Gynecological HistoryNo gynecological history recorded. Obstetrics History GPAL:G 0 P 0 0 0 0 Immunizations Vaccine Type Date Status Note Provider Nam e and Address Organization Details Recorded Time Influenza, high-dose, trivalent, PF 2 completed Not Available [facility] 10/06/2022 19:30:19 zoster recombinant 9 completed Not Available [facility] 10/06/2022 19:30:20 influenza, unspecified formulation 3 completed Karen Dumont RN [facility], [place] - [facility] [employer] [facility] 07/18/2023 08:43:36 Past Encounters Encounter ID Performer Location Encounter Start Date Encounter Closed Date Diagnosis/Indication Diagnosis SNOMED-CT Code Diagnosis ICD10 Code Diagnosis IMO Codes Diagnosis Note [id number] Moses Lawrence MD [facility] [address] [place] [address] [place] [address] 06/15/2021 00:00:00 06/16/2021 06:22:20 [id number] Moses Lawrence MD [facility] [address] [place] [address] [place] [address] 02/07/2023 15:45:24 02/07/2023 16:17:01 Hypertensive disorder 79211454 I10 BP is good. Continue amlodipine Screening for malignant neoplasm of breast 542864293 Z12.39 [id number] Isak Choi MD [facility] [address] [place] [address] [place] [address] 03/22/2024 15:23:57 03/22/2024 16:10:19 Adult health examination 188652846 Z00.00 Screening for disorder 473853829 Z13.9 Primary ma lignant neoplasm of left lung 029488496 C34.92 Depressive disorder 3548 9007 F32.A Essential hypertension 69175363 I10 Anxiety 68469355 F41.9 Costal chondritis 149230 04 M94.0 Eczema 98857834 L30.9 Mitral valve prolapse 40 1324661 I34.1 Raynaud's phenomenon 266 207205 I73.00 Sj gren's syndrome 42147202 M35.00 Health Concerns Section Related Observation LastModified by Organization Detai ls LastModified Time None Recorded Concern Status LastModified by Organization Details LastModified Time None Recorded Advance Directives Directive None Recorded Payers Insurance Date Sequence Insurance Name Policy Number Policy Ellis Covered Member ID Ellis Member ID Guarantor Name 04/02/2024 1 [facility] (MEDICARE REPLACEMENT/A DVANTAGE - PPO) [id number] Ghislaine Haji [id number] Ghislaine Haji 03/22/2024 2 [place] Ghislaine Haji [id number] Ghislaine Haji Notes Date Note Type Note Provider Name and Address Organization Details Recorded Time 02/07/2023 text/html Here today for a f/u of mammogram. Needs a order for this. No issues or complaints today. Had a hx of breast cancer. Not much there to have a mammogram. Had a lumpectomy and noticed hardening of left breast and had implants removed. Does SBE. Has hard nodules on right side. She has a had a lumpectomy on right breast and feels things now. Moses Lawrence MD [email or web address], [employer], [place], [address], [employer] 02/07/2023 23:26:23 03/22/2024 text/html ROS as noted in the HPI will have feeding tube removed tomorrow on immunotherapy twice per month for a year . ELYSIA Guzman [address], [address], [place], [address], [employer] 03/31/2024 15:45:36 OBGyn Episode No OBEpisode recorded.
--- OUTSIDE RECORDS SUMMARY | 2025-07-08 13:06 | XMS_ITS ---
Author Organization [facility] Address [address] [place] [address] Care Team Providers Care Improvement Intern Name Role Phone Shanta Calderon MD Unavailable Taylor Francois MD Unavailable [phone] Catie Alfaro MD PhD Unavailable [phone] No, Physician Primary Care Provider Kaleb Lomeli MD Unavailable [phone] Active Problems Patient Care Coordination No te [...] She underwent a chest CT at [facility] on 10/07/2023. 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
== END ==
LOC: ANHLAB 11:26
PROVIDERS: PCP Nurse Practitioner Family; Visit Provider Physician Assistant Surgical
DX: C44.712 Basal cell carcinoma of skin of right lower limb, including hip (principal)
CPT/HCPCS: 88305